=== PATIENT | male | born 1990 | race Caucasian/White ===

== ENCOUNTER → 2020-08-27 16:32 | Outpatient (BNVA) | payer MEDICARE, MEDICAID, SELFPAY | PROVIDERS: PCP Family Medicine; Visit Provider Anesthesiology | DX: L73.2 Hidradenitis suppurativa (principal); Z79.891 Long term (current) use of opiate analgesic | CPT/HCPCS: 99213 ==

== ENCOUNTER → 2020-10-01 15:02 | Outpatient (BNVA) | payer MEDICARE, MEDICAID, SELFPAY | PROVIDERS: PCP Family Medicine; Referring Provider Family Medicine; Visit Provider Anesthesiology | DX: L73.2 Hidradenitis suppurativa (principal); Z79.891 Long term (current) use of opiate analgesic | CPT/HCPCS: 99212 ==

== ENCOUNTER → 2020-10-29 15:10 | Outpatient (BNVA) | payer MEDICARE, MEDICAID, SELFPAY | PROVIDERS: PCP Family Medicine; Visit Provider Anesthesiology | DX: L73.2 Hidradenitis suppurativa (principal); Z79.891 Long term (current) use of opiate analgesic | CPT/HCPCS: 99212 ==

== ENCOUNTER → 2020-11-25 15:32 | Outpatient (BNVA) | payer MEDICARE, MEDICAID, SELFPAY | PROVIDERS: PCP Family Medicine; Visit Provider Anesthesiology | DX: L73.2 Hidradenitis suppurativa (principal); Z79.891 Long term (current) use of opiate analgesic | CPT/HCPCS: 99212 ==

== ENCOUNTER → 2020-12-30 15:01 | Outpatient (BNVA) | payer MEDICARE, MEDICAID, SELFPAY | PROVIDERS: PCP Family Medicine; Visit Provider Anesthesiology | DX: L73.2 Hidradenitis suppurativa (principal); Z79.891 Long term (current) use of opiate analgesic | CPT/HCPCS: 99212 ==

== ENCOUNTER → 2021-01-27 14:29 | Outpatient (BNVA) | payer MEDICARE, MEDICAID, SELFPAY | PROVIDERS: Visit Provider Anesthesiology | DX: L73.2 Hidradenitis suppurativa (principal); Z79.891 Long term (current) use of opiate analgesic | CPT/HCPCS: 99212 ==

== ENCOUNTER → 2021-02-24 15:51 | Outpatient (BNVA) | payer MEDICARE, MEDICAID, SELFPAY | PROVIDERS: Visit Provider Anesthesiology | DX: L73.2 Hidradenitis suppurativa (principal); Z79.891 Long term (current) use of opiate analgesic | CPT/HCPCS: 99212 ==

== ENCOUNTER → 2021-03-22 15:45 | Outpatient (BNVA) | payer MEDICARE, MEDICAID, SELFPAY | PROVIDERS: PCP Family Medicine; Visit Provider Anesthesiology | DX: L73.2 Hidradenitis suppurativa (principal); Z79.891 Long term (current) use of opiate analgesic | CPT/HCPCS: 99212 ==

== ENCOUNTER → 2021-04-26 13:21 | Outpatient (BNVA) | payer MEDICARE, MEDICAID, SELFPAY | PROVIDERS: PCP Family Medicine; Visit Provider Anesthesiology | DX: L73.2 Hidradenitis suppurativa (principal); Z79.891 Long term (current) use of opiate analgesic | CPT/HCPCS: 99212 ==

== ENCOUNTER → 2021-05-24 13:53 | Outpatient (BNVA) | payer MEDICARE, MEDICAID, SELFPAY | PROVIDERS: PCP Family Medicine; Visit Provider Anesthesiology | DX: L73.2 Hidradenitis suppurativa (principal); Z79.891 Long term (current) use of opiate analgesic | CPT/HCPCS: Q3014 ==

== ENCOUNTER → 2021-07-01 09:48 | Outpatient (BNVA) | payer MEDICARE, MEDICAID, SELFPAY | PROVIDERS: PCP Family Medicine; Visit Provider Anesthesiology | DX: R10.31 Right lower quadrant pain (principal); L73.2 Hidradenitis suppurativa; Z79.891 Long term (current) use of opiate analgesic | CPT/HCPCS: 99212 ==

== ENCOUNTER → 2021-07-28 14:31 | Outpatient (BNVA) | payer MEDICARE, MEDICAID, SELFPAY | PROVIDERS: PCP Family Medicine; Visit Provider Anesthesiology | DX: Z51.81 Encounter for therapeutic drug level monitoring (principal); L73.2 Hidradenitis suppurativa; Z79.891 Long term (current) use of opiate analgesic | CPT/HCPCS: 99212 ==

== ENCOUNTER → 2021-08-25 14:29 | Outpatient (BNVA) | payer MEDICARE, MEDICAID, SELFPAY | PROVIDERS: PCP Family Medicine; Visit Provider Anesthesiology | DX: Z51.81 Encounter for therapeutic drug level monitoring (principal); L73.2 Hidradenitis suppurativa; Z79.891 Long term (current) use of opiate analgesic | CPT/HCPCS: 99212 ==

== ENCOUNTER 2021-09-22 10:20 | Emergency (ER) | payer MEDICARE, MEDICAID, SELFPAY ==
--- NOTE | 2021-09-22 | ECG_ITS ---
Test Reason : chest pain Blood Pressure : / mmHG Vent. Rate : 081 BPM Atrial Rate : 081 BPM P-R Int : 176 ms QRS Dur : 074 ms QT Int : 330 ms P-R-T Axes : 053 050 037 degrees QTc Int : 383 ms Normal sinus rhythm Normal ECG When compared with ECG of 04-MAR-2019 21:03, No significant change was found Referred By: Generic ED Physician Electronically Signed By:DONTAE LUNDBERG MD
--- NOTE | ~2021-09-22 | CT_ITS ---
EXAMINATION: CT ANGIOGRAM OF THE CHEST WITH CONTRAST (CT PULMONARY ANGIOGRAM FOR PE) CLINICAL INFORMATION: Chest pain. Evaluate for pulmonary embolism. COMPARISON: CXR from 09/22/2021. TECHNIQUE: Prior to contrast administration, noncontrast localization images were obtained. Subsequently, multidetector volumetric imaging was performed from the thoracic inlet to below the diaphragms following the administration of 60 mL Omnipaque 350 intravenous contrast. No contrast reaction reported. Sagittal, coronal, and MIP oblique sagittal reformatted images were obtained on the CT workstation, uploaded to PACS, and reviewed. This CT examination was performed using dose optimization techniques as appropriate, variously including the following: *Automated exposure control *Adjustment of mA and/or kV according to patient size (this includes techniques or standardized protocols for targeted exams where dose is matched to indication/reason for exam; i.e. extremities or head) *Use of iterative reconstruction technique DLP: Total exam dose-length product 338 mGy-cm FINDINGS: LUNGS AND PLEURA: Trachea and central airways are widely patent and normal in caliber. Lungs are well expanded and clear. Mild paraseptal emphysema at the lung apices. No pulmonary edema. No interstitial disease, consolidation or pleural effusion. No pneumothorax. QUALITY OF STUDY/CONTRAST BOLUS: Satisfactory. CARDIOVASCULAR: Pulmonary arteries are normal in size. No embolic filling defects in the main, lobar or segmental vessels. The heart size is normal. No inward bowing of the interventricular septum. No pericardial effusion. Thoracic aorta is normal; no aneurysm or dissection. MEDIASTINUM/LOWER NECK: The esophagus and visualized portion of the thyroid gland are normal. No mediastinal mass. No pneumomediastinum. LYMPHATICS: No pathologic sized axillary, hilar or mediastinal lymph nodes. UPPER ABDOMEN: There is reflux of contrast into the IVC and hepatic veins. This is a finding that can be seen normally at high contrast injection rates. The peak IV flow rate on this scan was 5 mL/sec. However, reflux of contrast can also be a manifestation of elevated right-sided cardiac pressures. Adrenal glands are normal. OSSEOUS STRUCTURES: Mild dextrocurvature of the upper thoracic spine and mild levocurvature of the lower thoracic spine. No suspicious bone lesions. CT/CT angio chest PE protocol IMPRESSION: * No evidence of pulmonary embolism. * Mild paraseptal emphysema at the lung apices. No pneumothorax. * The finding of contrast reflux into the IVC is probably from the high intravenous injection rate.
--- NOTE | ~2021-09-22 | XR_ITS ---
EXAMINATION: XR CHEST CLINICAL INFORMATION: Chest pain COMPARISON: Radiographs of chest/ribs from 04/16/2019 TECHNIQUE: 2 views of the chest were obtained. FINDINGS: Lungs are well-inflated and clear. Trachea is midline in position. No interstitial disease, consolidation or mass. No pulmonary edema, pleural effusion or pneumothorax. Cardiac silhouette and pulmonary vessels are normal in size. The mediastinum and kerry have normal contour. The visualized bones, and upper abdomen, are unremarkable. XR/XR chest 2V IMPRESSION: No acute cardiopulmonary abnormality.
[2021-09-22 10:26] VITALS: BP 113/92; PULSE 84; RESP 18; TEMP 36.4; O2SAT 100; BMI 26.6
--- NOTE | 2021-09-22 10:54 | ED_ITS ---
HPI - Chest Pain General Chief Complaint: Chest Pain Stated Complaint: chest pain Time Seen by Provider: 09/22/21 10:54 Source: patient Mode of arrival: ambulatory Limitations: no limitations History of Present Illness HPI narrative: pleuritic lety pain since this am complaint: chest pain Onset (ago): hour(s) (6) Timing of current episode: constant Prior episodes: No Onset: during rest Pain location: substernal Pain radiation: none Severity: moderate Quality: sharp Relieving factors: nothing Exacerbating factors: inspiration Risk Factors Coronary artery disease risk factors: none Related Data Previous Rx's Medication Instructions Recorded oxycodone 5 mg tablet 5 mg PO QID PRN 30 Days #120 tab 09/17/21 Allergies Allergy/AdvReac Type Severity Reaction Status Date / Time cephalexin Allergy Unknown Unknown Verified 08/25/21 14:54 penicillin G Allergy Unknown Unknown Verified 08/25/21 14:54 Doxycycline Hyclate Allergy Unknown vomiting Uncoded 06/11/20 00:00 Review of Systems Review of Systems: Yes all other systems are reviewed and are negative Constitutional: Constitutional: Reports no additional constitutional complaints ENT: Reports system reviewed and no additional complaints, except as documented Cardiovascular: Cardiovascular: Denies irregular heart rhythm, Denies leg edema, Denies lightheadedness and Denies dyspnea Respiratory: Respiratory: Denies dyspnea PMFSH Past Medical History Attestation statement: The following information was validated with the patient. 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 Social History Social History Advance Directives: No Advance Directives Information Provided: No Physical Exam Vital Signs: Vital Signs: Last Vital Signs Temp 97.6 F 09/22/21 10:26 Pulse 84 09/22/21 10:26 Resp 18 09/22/21 10:26 BP 113/92 H 09/22/21 10:26 Pulse Ox 100 09/22/21 10:26 Body Mass Index 26.6 Const: General: cooperative and healthy appearing Orientation/consciousness: oriented to person, oriented to place, oriented to time and patient oriented x3 HENMT: Head: Yes normal to inspection Face and sinus: Yes normal facial exam Mouth: Normal oral and palatal mucosa present Teeth and gingiva: dentition normal Neck: Neck: Yes normal visual inspection Thyroid: Thyroid normal Chest: Chest palpation & inspection: normal inspection of the chest Resp: Effort & Inspection: normal respiratory effort Cardio: Jugular venous distension: no JVD Rate: regular rate Rhythm: regular rhythm GI: Inspection: Yes normal to inspection Palpation (GI): Soft to palpation Auscultation: normal bowel sounds Neuro: General: oriented to person, oriented to place, oriented to time and p atient oriented x3 Course Reevaluation(s) Reevaluation #1: Patient is feeling better his workup is negative including a CT angiogram of the chest EKG troponin patient can be safely discharged home Procedures EJ/Peripheral Line Arm L: Time Out Performed: Yes Size (gauge): 20 Patient Tolerated Procedure: well Additional Comments: Under US cannulated left brachial vein with 20 teresa catheter MDM - Chest Pain Lab Data Result diagrams: 09/22/21 12:05 09/22/21 12:05 Labs: Lab Results 09/22/21 09/22/21 09/22/21 Range/Units 12:05 12:05 12:05 WBC 14.9 H (4.8-10.8) X10*3/uL RBC 4.25 L (4.60-5.80) X10*6/uL Hgb 13.5 L (14.0-18.0) g/dl Hct 42.6 (42.0-52.0) % MCV 100.2 H (80.0-98.0) fL MCH 31.8 (27.0-33.0) pg MCHC 31.7 (31.0-36.0) g/dl RDW 13.3 (11.0-16.0) % Plt Count 414 H (160-400) X10*3/uL MPV 10.6 (9.4-12.4) fL Immature Gran % (Auto) 0.6 H (0.0-0.4) % Neut % (Auto) 71.6 (45-73) % Lymph % (Auto) 18.9 L (20-40) % [place] % (Auto) 6.2 (2-11) % Eos % (Auto) 2.2 (0-4) % Baso % (Auto) 0.5 (0-2) % Lymph # (Auto) 2.8 (1.2-4.9) X10*3/uL [place] # (Auto) 0.9 (0.1-1.2) X10*3/uL Eos # (Auto) 0.3 (0.0-0.4) X10*3/uL Baso # (Auto) 0.1 (0.0-0.2) X10*3/uL Abs Immat Gran (auto) 0.09 H (0.00-0.03) X10*3/uL Absolute Neuts (auto) 10.6 H (2.0-8.3) x10*3/uL Absolute Nucleated RBC 0.000 (0.0-0.012) X10*3/uL Nucleated RBC % (auto) 0.0 (0.0-0.2) /100WBC D-Dimer 317 NG/ML Sodium 139 (135-145) mmol/L Potassium 4.3 (3.3-5.1) mmol/L Chloride 103 (96-108) mmol/L Carbon Dioxide 29 (22-29) mmol/L Anion Gap 11 L (12-20) BUN 7 L (9-16) mg/dL Creatinine 0.67 (0.5-1.4) mg/dL Estim Creat Clear Calc 150.7 Estimated GFR > 60 Random Glucose 93 (60-115) mg/dL Calcium 9.1 (8.4-10.2) mg/dL Total Bilirubin 0.3 (0.0-1.0) mg/dL AST 15 (5-37) U/L ALT 14 (0-40) U/L Alkaline Phosphatase 85 (39-117) U/L Troponin I High Sens (<3.5-35.0) ng/L Total Protein 8.3 H (6.5-8.0) g/dL Albumin 3.7 (3.5-5.0) g/dL 09/22/21 Range/Units 12:05 WBC (4.8-10.8) X10*3/uL RBC (4.60-5.80) X10*6/uL Hgb (14.0-18.0) g/dl Hct (42.0-52.0) % MCV (80.0-98.0) fL MCH (27.0-33.0) pg MCHC (31.0-36.0) g/dl RDW (11.0-16.0) % Plt Count (160-400) X10*3/uL MPV (9.4-12.4) fL Immature Gran % (Auto) (0.0-0.4) % Neut % (Auto) (45-73) % Lymph % (Auto) (20-40) % [place] % (Auto) (2-11) % Eos % (Auto) (0-4) % Baso % (Auto) (0-2) % Lymph # (Auto) (1.2-4.9) X10*3/uL [place] # (Auto) (0.1-1.2) X10*3/uL Eos # (Auto) (0.0-0.4) X10*3/uL Baso # (Auto) (0.0-0.2) X10*3/uL Abs Immat Gran (auto) (0.00-0.03) X10*3/uL Absolute Neuts (auto) (2.0-8.3) x10*3/uL Absolute Nucleated RBC (0.0-0.012) X10*3/uL Nucleated RBC % (auto) (0.0-0.2) /100WBC D-Dimer NG/ML Sodium (135-145) mmol/L Potassium (3.3-5.1) mmol/L Chloride (96-108) mmol/L Carbon Dioxide (22-29) mmol/L Anion Gap (12-20) BUN (9-16) mg/dL Creatinine (0.5-1.4) mg/dL Estim Creat Clear Calc Estimated GFR Random Glucose (60-115) mg/dL Calcium (8.4-10.2) mg/dL Total Bilirubin (0.0-1.0) mg/dL AST (5-37) U/L ALT (0-40) U/L Alkaline Phosphatase (39-117) U/L Troponin I High Sens < 3.5 (<3.5-35.0) ng/L Total Protein (6.5-8.0) g/dL Albumin (3.5-5.0) g/dL Imaging Data CT scan - chest: Radiologist's impression: TECHNIQUE: Prior to contrast administration, noncontrast localization images were obtained. Subsequently, multidetector volumetric imaging was performed from the thoracic inlet to below the diaphragms following the administration of 60 mL Omnipaque 350 intravenous contrast. No contrast reaction reported. Sagittal, coronal, and MIP oblique sagittal reformatted images were obtained on the CT workstation, uploaded to PACS, and reviewed.? This CT examination was performed using dose optimization techniques as appropriate, variously including the following: *Automated exposure control *Adjustment of mA and/or kV according to patient size (this includes techniques or standardized protocols for targeted exams where dose is matched to indication/reason for exam; i.e. extremities or head) *Use of iterative reconstruction technique DLP: Total exam dose-length product 338 mGy-cm FINDINGS: LUNGS AND PLEURA: Trachea and central airways are widely patent and normal in caliber. Lungs are well expanded and clear. Mild paraseptal emphysema at the lung apices. No pulmonary edema. No interstitial disease, consolidation or pleural effusion. No pneumothorax. QUALITY OF STUDY/CONTRAST BOLUS: Satisfactory. ECG Data ECG #1: Prior ECG tracings: available for review Pacemaker model: NSR 81 no ischemic changes Discharge Plan Discharge Clinical Impression: Chest pain Patient Disposition: Home, Self-Care Instructions: Chest Wall Pain (ED) Prescriptions: No Action oxycodone 5 mg tablet 5 mg PO QID PRN (Reason: pain) 30 Days Qty: 120 RF: 0 Referrals: Michael Chery MD [Primary Care Provider] - 2 days
[2021-09-22] MEDS: Ibuprofen 800 MG TABLET PO (11:59)
[2021-09-22 12:10] LABS: MANUAL DIFF FLAG NO
[2021-09-22 12:13] LABS: Basophils Absolute Auto 0.1 X10*3/uL (0.0-0.2); Basophils Percent Auto 0.5 % (0-2); Eosinophils Absolute Auto 0.3 X10*3/uL (0.0-0.4); Eosinophils Percent Auto 2.2 % (0-4); Hematocrit 42.6 % (42.0-52.0); Hemoglobin 13.5 g/dl (14.0-18.0); Imm Gran Abs Auto 0.09 X10*3/uL (0.00-0.03); Imm Gran Pct Auto 0.6 % (0.0-0.4); Lymphocytes Absolute Auto 2.8 X10*3/uL (1.2-4.9); Lymphocytes Percent Auto 18.9 % (20-40); Mean Corpuscular HGB Conc 31.7 g/dl (31.0-36.0); Mean Corpuscular Hemoglobin 31.8 pg (27.0-33.0); Mean Corpuscular Volume 100.2 fL (80.0-98.0); Mean Platelet Volume 10.6 fL (9.4-12.4); Monocytes Absolute Auto 0.9 X10*3/uL (0.1-1.2); Monocytes Percent Auto 6.2 % (2-11); Neutrophils Absolute Auto 10.6 x10*3/uL (2.0-8.3); Neutrophils Percent Auto 71.6 % (45-73); Platelet Count 414 X10*3/uL (160-400); Red Blood Count 4.25 X10*6/uL (4.60-5.80); Red Cell Distribution Width 13.3 % (11.0-16.0); White Blood Count 14.9 X10*3/uL (4.8-10.8)
[2021-09-22 12:20] LABS: D Dimer 317 NG/ML
[2021-09-22 12:30] LABS: Troponin-I High Sensitivity < 3.5 ng/L (<3.5-35.0)
[2021-09-22 12:34] LABS: Alanine Aminotransferase 14 U/L (0-40); Albumin Level 3.7 g/dL (3.5-5.0); Alkaline Phosphatase 85 U/L (39-117); Anion Gap 11 (12-20); Aspartate Amino Transferase 15 U/L (5-37); Bilirubin Total 0.3 mg/dL (0.0-1.0); Blood Urea Nitrogen 7 mg/dL (9-16); Calcium 9.1 mg/dL (8.4-10.2); Carbon Dioxide 29 mmol/L (22-29); Chloride 103 mmol/L (96-108); Creatinine Clr Calc Pharmacy 150.7; Estimated Glomerular Filt Rate > 60; Glucose Random 93 mg/dL (60-115); Potassium 4.3 mmol/L (3.3-5.1); Sodium 139 mmol/L (135-145); Total Protein 8.3 g/dL (6.5-8.0)
[2021-09-22] MEDS: iohexoL 350 MG/ML 100 ML INFUS..BTL 65 ML IV (14:16)
== END 2021-09-22 15:04 | disposition home or self-care (01) ==
PROVIDERS: Emergency Provider Emergency Medicine; PCP Family Medicine
DX: R07.9 Chest pain, unspecified (principal); Z79.891 Long term (current) use of opiate analgesic
CPT/HCPCS: 36415; 71046; 71275; 80053; 84484; 85025; 85379; 93005; 99211; 99284; Q9967

== ENCOUNTER → 2021-10-25 14:29 | Outpatient (BNVA) | payer MEDICARE, MEDICAID, SELFPAY | PROVIDERS: PCP Family Medicine; Visit Provider Anesthesiology | DX: Z51.81 Encounter for therapeutic drug level monitoring (principal); L73.2 Hidradenitis suppurativa; Z79.891 Long term (current) use of opiate analgesic | CPT/HCPCS: 99212 ==

== ENCOUNTER → 2021-11-22 14:15 | Outpatient (BNVA) | payer MEDICARE, MEDICAID, SELFPAY | PROVIDERS: PCP Family Medicine; Visit Provider Anesthesiology | DX: Z51.81 Encounter for therapeutic drug level monitoring (principal); L73.2 Hidradenitis suppurativa; Z79.891 Long term (current) use of opiate analgesic | CPT/HCPCS: 99212 ==

== ENCOUNTER → 2021-12-27 14:00 | Outpatient (BNVA) | payer MEDICARE, MEDICAID, SELFPAY | PROVIDERS: PCP Family Medicine; Visit Provider Anesthesiology | DX: Z51.81 Encounter for therapeutic drug level monitoring (principal); Z79.891 Long term (current) use of opiate analgesic; L73.2 Hidradenitis suppurativa; F12.90 Cannabis use, unspecified, uncomplicated | CPT/HCPCS: 99212 ==

== ENCOUNTER → 2022-01-24 13:25 | Outpatient (BNVA) | payer MEDICARE, MEDICAID, SELFPAY | PROVIDERS: PCP Family Medicine; Visit Provider Anesthesiology | DX: Z13.89 Encounter for screening for other disorder (principal) ==

== ENCOUNTER → 2022-02-21 14:52 | Outpatient (BNVA) | payer MEDICARE, MEDICAID, SELFPAY | PROVIDERS: PCP Family Medicine; Visit Provider Anesthesiology | DX: L73.2 Hidradenitis suppurativa (principal); Z79.891 Long term (current) use of opiate analgesic | CPT/HCPCS: 99212 ==

== ENCOUNTER → 2022-03-21 15:00 | Outpatient (BNVA) | payer MEDICARE, MEDICAID, SELFPAY | PROVIDERS: PCP Family Medicine; Visit Provider Anesthesiology | DX: Z51.81 Encounter for therapeutic drug level monitoring (principal); F11.20 Opioid dependence, uncomplicated | CPT/HCPCS: 99211 ==

== ENCOUNTER → 2022-04-25 15:02 | Outpatient (BNVA) | payer MEDICARE, MEDICAID, SELFPAY | PROVIDERS: PCP Family Medicine; Visit Provider Anesthesiology | DX: L73.2 Hidradenitis suppurativa (principal); Z79.891 Long term (current) use of opiate analgesic | CPT/HCPCS: 99212 ==

== ENCOUNTER → 2022-05-23 14:54 | Outpatient (BNVA) | payer MEDICARE, MEDICAID, SELFPAY | PROVIDERS: PCP Family Medicine; Visit Provider Anesthesiology | DX: L73.2 Hidradenitis suppurativa (principal); Z79.891 Long term (current) use of opiate analgesic | CPT/HCPCS: 99212 ==

== ENCOUNTER 2022-06-17 19:58 | Emergency (ER) | payer MEDICARE, MEDICAID, SELFPAY ==
[2022-06-17 20:39] VITALS: BP 121/76; PULSE 62; RESP 18; TEMP 36.9; O2SAT 99; BMI 25.8
== END 2022-06-17 22:42 | disposition left against medical advice (07) ==
PROVIDERS: Emergency Provider Emergency Medicine; PCP Family Medicine
DX: R10.9 Unspecified abdominal pain (principal); R11.10 Vomiting, unspecified
CPT/HCPCS: 99281

== ENCOUNTER → 2022-06-22 15:15 | Outpatient (BNVA) | payer MEDICARE, MEDICAID, SELFPAY | PROVIDERS: PCP Family Medicine; Visit Provider Anesthesiology | DX: L73.2 Hidradenitis suppurativa (principal); Z79.891 Long term (current) use of opiate analgesic | CPT/HCPCS: 99212 ==

== ENCOUNTER → 2022-07-20 15:01 | Outpatient (BNVA) | payer MEDICARE, MEDICAID, SELFPAY | PROVIDERS: PCP Family Medicine; Visit Provider Anesthesiology | DX: Z51.81 Encounter for therapeutic drug level monitoring (principal); F11.20 Opioid dependence, uncomplicated | CPT/HCPCS: 99211 ==

== ENCOUNTER → 2022-09-21 16:17 | Outpatient (BNVA) | payer MEDICARE, MEDICAID, SELFPAY | PROVIDERS: PCP Hospitalist; Visit Provider Anesthesiology | DX: Z51.81 Encounter for therapeutic drug level monitoring (principal); F11.20 Opioid dependence, uncomplicated | CPT/HCPCS: 99211 ==

== ENCOUNTER 2022-10-19 16:58 | Outpatient (REF) | payer MEDICARE, MEDICAID, SELFPAY ==
[2022-10-19 17:54] LABS: Influenza A PCR NEGATIVE (Negative); Influenza B PCR NEGATIVE (Negative); Resp Syncy Virus RNA Qual PCR NEGATIVE (Negative); SARS COV2 PCR INHOUSE NEGATIVE (Negative)
== END 2022-10-19 16:59 | disposition home or self-care (01) ==
LOC: HO.LNP 16:58
PROVIDERS: Visit Provider Nurse Practitioner Family
DX: R09.89 Other specified symptoms and signs involving the circulatory and respiratory systems (principal); Z20.822 Contact with and (suspected) exposure to COVID-19
CPT/HCPCS: 0241U

== ENCOUNTER → 2022-10-24 16:21 | Outpatient (BNVA) | payer MEDICARE, MEDICAID, SELFPAY | PROVIDERS: PCP Hospitalist; Visit Provider Anesthesiology | DX: L73.2 Hidradenitis suppurativa (principal); Z79.891 Long term (current) use of opiate analgesic | CPT/HCPCS: 99212 ==

== ENCOUNTER → 2022-11-22 14:56 | Outpatient (BNVA) | payer MEDICARE, MEDICAID, SELFPAY | PROVIDERS: PCP Hospitalist; Visit Provider Anesthesiology | DX: Z79.891 Long term (current) use of opiate analgesic (principal) | CPT/HCPCS: 99211 ==

== ENCOUNTER → 2022-12-26 14:55 | Outpatient (BNVA) | payer MEDICARE, MEDICAID, SELFPAY | PROVIDERS: PCP Hospitalist; Visit Provider Anesthesiology | DX: L73.2 Hidradenitis suppurativa (principal); Z79.891 Long term (current) use of opiate analgesic | CPT/HCPCS: 99212 ==

== ENCOUNTER → 2023-01-23 15:34 | Outpatient (BNVA) | payer MEDICARE, MEDICAID, SELFPAY | PROVIDERS: PCP Hospitalist; Visit Provider Anesthesiology | DX: Z51.81 Encounter for therapeutic drug level monitoring (principal); L73.2 Hidradenitis suppurativa; Z79.891 Long term (current) use of opiate analgesic | CPT/HCPCS: 99212 ==

== ENCOUNTER → 2023-02-20 15:25 | Outpatient (BNVA) | payer MEDICARE, MEDICAID, SELFPAY | PROVIDERS: PCP Hospitalist; Visit Provider Anesthesiology | DX: L73.2 Hidradenitis suppurativa (principal); Z79.891 Long term (current) use of opiate analgesic | CPT/HCPCS: 99212 ==

== ENCOUNTER → 2023-03-20 15:07 | Outpatient (BNVA) | payer MEDICARE, MEDICAID, SELFPAY | PROVIDERS: PCP Hospitalist; Visit Provider Nurse Practitioner Family | DX: L73.2 Hidradenitis suppurativa (principal); Z79.891 Long term (current) use of opiate analgesic | CPT/HCPCS: 99212 ==

== ENCOUNTER → 2023-04-19 15:44 | Outpatient (BNVA) | payer MEDICARE, MEDICAID, SELFPAY | PROVIDERS: PCP Hospitalist; Visit Provider Anesthesiology | DX: L73.2 Hidradenitis suppurativa (principal); Z79.891 Long term (current) use of opiate analgesic | CPT/HCPCS: 99212 ==

== ENCOUNTER 2023-05-24 15:32 | Outpatient (AMB) | payer MEDICAID, SELFPAY ==
--- NOTE | 2023-05-24 15:34 | A.OFFVIS_ITS ---
Intake Vital Signs 05/24/23 15:45 Height 5 ft 9 in Weight 180 lb BMI 26.6 BP 102/60 Blood Pressure Location Lt brachial Position Sitting Respiration 16 Pulse 73 Pulse Source Pulse Oximeter Pulse Oximetry (%) 98 Oxygen Delivery Method Room Air Intake Visit Reasons: Pill count Intake Note: Patient comes in for pill count to Oxycodone 5 mg tablets . He presented with 80 tablets and should have 76 tablets. Which he took last at 12 pm. Patient reports pain level today of 7/10. Allergies cephalexin Allergy (Unknown, Verified 05/24/23 15:45) Unknown penicillin G Allergy (Unknown, Verified 05/24/23 15:45) Unknown Doxycycline Hyclate Allergy (Unknown, Uncoded 04/19/23 15:50) vomiting HPI HPI Comments History of Present Illness Details Patient is a pleasant 32 years old male presents today for pill count. Patient is supposed to have # 76 pills, in his possession has # 80 pills. This demonstrates a responsible attitude in regards to the medication regimen. Patient continues to report reasonable pain relief on his regimen of oxycodone 5 mg QID prn with no noted side effects. He reports today pain level 7/10. He reports pain medication helps his pain. He went to [place] for another surgical evaluation and he was offered intravenous antibiotic treatment for 1 week a and exploration surgery of hidradenitis in his bilateral groins while and on antibiotic therapy without closure of the wounds and healing of the wounds with secondary tension. Potentially this will result in healing of his condition. However it also will result in extensive groin scarring. Denies any constipation, nausea, sedation, dizziness, or urinary retention. Patient reports pain medication allows him to be less symptomatic and more functional. He reports that he continues Remicade infusions. PRIOR Mr. Leon is very pleasant 32 years old gentleman who is in my office on opioid medications for treatment of the pain related to hidradenitis suppurativa. He is here for pill count and medication refill. He presented with receipts from official cannabis dispensary demonstrating that he is not taking street cannabis resection of the skin with a replacement of the skin graft surgery is considered in [place]. With there is also discussion of replacement of his Enbrel with Remicade infusions or doubling the dose of Enbrel if his insurance company will allow it. I will renew his medications he is due on 05/14/2023 [facility] Medical History Hidradenitis suppurativa residential (current) use of opiate analgesic Review of Systems Const All systems reviewed & are unremarkable except as noted in HPI and below Physical Exam Vital Signs: Last Vital Signs Pulse 73 05/24/23 15:45 Resp 16 05/24/23 15:45 BP 102/60 05/24/23 15:45 Pulse Ox 98 05/24/23 15:45 Oxygen Delivery Method Room Air 05/24/23 15:45 BMI result Body Mass Index 26.6 Eyes General: appearance normal, both eyes and all related structures EOM: EOMs intact bilaterally Neck Neck: Yes full ROM Chest Chest palpation & inspection: normal inspection of the chest Resp Effort & Inspection: normal respiratory effort, able to speak in complete sentences, normal respiratory pattern, no audible wheezes and no cough Cardio Jugular venous distension: no JVD GI Inspection: Yes normal to inspection Psych Appearance: grossly normal and well kempt Mental Status: mental status grossly normal Affect: normal affect Assessment & Plan Assessment & Plan (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 There is no evidence of misuse, abuse or diversion at this time[facility] for [facility]one 5 mg QID prn with advanced date of 06/13/2023 Patient is aware of monitoring for side effects. All questions were answered and the patient is in agreement with the plan. Will follow up in 4 weeks for a pill count or sooner if needed. If he will go to [place] for his procedure he will be for long period of time under inpatient treatment. Therefore he will not be able to attend his regular pill counts. Please do not hold him accountable for no-show for the pill counts if reputable records of the [facility] are presented. Medications: Refilled oxycodone Partial Fill upon patient request. 5 mg PO QID PRN 120 tabs 0RF pain 30 days L73.2 - Hidradenitis suppurativa, Z79.891 - residential (current) use of opiate analgesic Coding Level of Care Code Est Pt Level 3 (92106) Diagnoses residential (current) use of opiate analgesic Z79.891 Hidradenitis suppurativa L73.2
[2023-05-24 15:45] VITALS: BP 102/60; PULSE 73; RESP 16; O2SAT 98; BMI 26.6
== END 2023-05-24 16:06 | disposition home or self-care (01) ==
PROVIDERS: PCP Hospitalist; Visit Provider Anesthesiology
DX: L73.2 Hidradenitis suppurativa (principal); Z79.891 Long term (current) use of opiate analgesic
CPT/HCPCS: 99213

== ENCOUNTER → 2023-05-24 15:32 | Outpatient (BNVA) | payer MEDICARE, MEDICAID, SELFPAY | PROVIDERS: PCP Hospitalist; Visit Provider Anesthesiology | DX: L73.2 Hidradenitis suppurativa (principal); Z79.891 Long term (current) use of opiate analgesic | CPT/HCPCS: 99212 ==

== ENCOUNTER → 2023-06-21 15:00 | Outpatient (BNVA) | payer MEDICARE, MEDICAID, SELFPAY | PROVIDERS: PCP Hospitalist; Visit Provider Anesthesiology | DX: Z51.81 Encounter for therapeutic drug level monitoring (principal); F11.20 Opioid dependence, uncomplicated | CPT/HCPCS: 99211 ==

== ENCOUNTER 2023-07-19 15:25 | Outpatient (AMB) | payer MEDICARE, MEDICAID, SELFPAY ==
[2023-07-19 15:56] VITALS: BP 104/60; PULSE 68; RESP 16; O2SAT 97; BMI 26.9
--- NOTE | 2023-07-19 15:56 | A.OFFVIS_ITS ---
Intake Vital Signs 07/19/23 15:56 Height 5 ft 9 in Weight 182 lb BMI 26.9 BP 104/60 Blood Pressure Location Lt brachial Position Sitting Respiration 16 Pulse 68 Pulse Source Pulse Oximeter Pulse Oximetry (%) 97 Oxygen Delivery Method Room Air Intake Visit Reasons: Pill count Intake Note: patient comes in for pill count. Allergies cephalexin Allergy (Unknown, Verified 07/19/23 15:58) Unknown penicillin G Allergy (Unknown, Verified 07/19/23 15:58) Unknown Doxycycline Hyclate Allergy (Unknown, Uncoded 04/19/23 15:50) vomiting HPI HPI Comments History of Present Illness Details Wily is a very pleasant 33 year old male who presents to the office for follow up chronic pain and chronic opioid therapy management. Patient is prescribed oxycodone 5 mg QID prn. Patient arrived today with the expectation of having 92 pills, he presented 94 pills which were counted in the presence of two staff members and returned to the patient in the original prescription bottle. This demonstrates responsible attitude toward patient's opioid medications. Pain is reported today as 9/10 and last dose of pain medication was taken at noon today. Pain is adequately managed on current opioid regimen. Patient states he is able to engage in activities of daily living with minimal interruption due to chronic pain. Patient denies side effects including somnolence, constipation, itching, dyspnea, rash, dizziness or weakness. Patient recently evaluated on [place] and was started on Ertapenem IV once daily via PICC line to the right arm. Patient states he is tolerating the medication well and has noticed significant improvment in his HS. States still having pain as the tissue is healing. Plan for surgical removal of area on back and posterior right leg after completion of 14 weeks abx therapy. Prior: Patient is a pleasant 32 years old male presents today for pill count. Patient is supposed to have # 76 pills, in his possession has # 80 pills. This demonstrates a responsible attitude in regards to the medication regimen. Patient continues to report reasonable pain relief on his regimen of oxycodone 5 mg QID prn with no noted side effects. He reports today pain level 7/10. He reports pain medication helps his pain. He went to [place] for another surgical evaluation and he was offered intravenous antibiotic treatment for 1 week a and exploration surgery of hidradenitis in his bilateral groins while and on antibiotic therapy without closure of the wounds and healing of the wounds with secondary tension. Potentially this will result in healing of his condition. However it also will result in extensive groin scarring. Denies any constipation, nausea, sedation, dizziness, or urinary retention. Patient reports pain medication allows him to be less symptomatic and more functional. He reports that he continues Remicade infusions. 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 Answers questions appropriately. Fully engaged in examination. HEENT: Normocephalic. Hearing intact. Cardiac: External chest normal in appearance. Respiratory: No cough, audible wheezing or stridor. Abdomen: without gross distension. MS: No obvious swelling or deformities. Able to transition from sit to stand unassisted. Ambulates with bilaterally normal heel strike and toe off Neurological: Oriented to person, place, time and situation. Thought process intact. No gait abnormalities appreciated. Psychiatric: Appropriate mood and affect. Good judgment and insight. 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 No obvious signs of diversion, abuse or misuse of the opioid medications. Will send in prescription for oxycodone 5 mg QID prn with an advanced date of 08/12/2023. Patient to follow-up in the office in 1 month, sooner if needed. All questions and concerns have been answered and patient agrees with the plan. Medications: Refilled oxycodone Partial Fill upon patient request. 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
== END 2023-07-19 16:06 | disposition home or self-care (01) ==
PROVIDERS: PCP Hospitalist; Visit Provider Anesthesiology
DX: G89.4 Chronic pain syndrome (principal); L73.2 Hidradenitis suppurativa; Z79.891 Long term (current) use of opiate analgesic
CPT/HCPCS: 99213

== ENCOUNTER → 2023-07-19 15:25 | Outpatient (BNVA) | payer MEDICARE, MEDICAID, SELFPAY | PROVIDERS: PCP Hospitalist; Visit Provider Anesthesiology | DX: L73.2 Hidradenitis suppurativa (principal); Z79.891 Long term (current) use of opiate analgesic | CPT/HCPCS: 99212 ==

== ENCOUNTER 2023-08-16 15:07 | Outpatient (AMB) | payer MEDICAID, SELFPAY ==
--- NOTE | 2023-08-16 15:12 | A.OFFVIS_ITS ---
Intake Vital Signs 08/16/23 15:17 Height 5 ft 9 in Weight 188 lb BMI 27.8 BP 96/58 L Blood Pressure Location Lt brachial Position Sitting Respiration 16 Pulse 80 Pulse Source Pulse Oximeter Pulse Oximetry (%) 96 Oxygen Delivery Method Room Air Intake Visit Reasons: Medication Count Allergies cephalexin Allergy (Unknown, Verified 08/16/23 15:36) Unknown penicillin G Allergy (Unknown, Verified 08/16/23 15:36) Unknown Doxycycline Hyclate Allergy (Unknown, Uncoded 04/19/23 15:50) vomiting HPI HPI Comments History of Present Illness Details Wily is a very pleasant 33 year old male who presents to the office for follow up chronic pain and chronic opioid therapy management. Patient is prescribed oxycodone 5 mg QID prn. Patient arrived today with the expectation of having 100 pills, he presented 106 pills which were counted in the presence of two staff members and returned to the patient in the original prescription bottle. This demonstrates responsible attitude toward patient's o pioid medications. Pain is reported today as 7.5/10 and last dose of pain medication was taken at noon today. Pain is adequately managed on current opioid regimen. Patient states he is able to engage in activities of daily living with minimal interruption due to chronic pain. Patient denies side effects including somnolence, constipation, itching, dyspnea, rash, dizziness or weakness. Patient remains on Ertapenem IV once daily via PICC line to the right arm. Patient states he is tolerating the medication well and has noticed significant improvment in his HS. Has an appt in [place] tomorrow with the surgeon to discuss surgical removal of recurrent cysts. Initial plan was 14 weeks of abx, now they are planning on 16 weeks. Receipt from Marijuana dispensary provided by patient and scanned into the chart. 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 Answers questions appropriately. Fully engaged in examination. HEENT: Normocephalic. Hearing intact. Cardiac: External chest normal in appearance. Respiratory: No cough, audible wheezing or stridor. Abdomen: without gross distension. MS: No obvious swelling or deformities. Able to transition from sit to stand unassisted. Ambulates with bilaterally normal heel strike and toe off Neurological: Oriented to person, place, time and situation. Thought process intact. No gait abnormalities appreciated. Psychiatric: Appropriate mood and affect. Good judgment and insight. Assessment & Plan Assessment & Plan (1) correction (current) use of opiate analgesic: Code(s): Z79.891 - correction (current) use of opiate analgesic (2) Hidradenitis suppurativa: Code(s): L73.2 - Hidradenitis suppurativa Plan [place] was reviewed and without concerns. No obvious signs of diversion, abuse or misuse of the opioid medications. Will send in prescription for oxycodone 5 mg QID prn with an advanced date of 09/11/2023. Patient to follow-up in the office in 1 month, sooner if needed. All questions and concerns have been answered and patient agrees with the plan. Patient will call the office to update plan if surgery is scheduled in [place] and next pill count needs to be rescheduled to accommodate surgery. Medications: Refilled oxycodone Partial Fill upon patient request. 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
[2023-08-16 15:17] VITALS: BP 96/58; PULSE 80; RESP 16; O2SAT 96; BMI 27.8
== END 2023-08-16 15:22 | disposition home or self-care (01) ==
PROVIDERS: PCP Hospitalist; Visit Provider Registered Nurse Emergency
DX: Z79.891 Long term (current) use of opiate analgesic (principal); L73.2 Hidradenitis suppurativa
CPT/HCPCS: 99213

== ENCOUNTER → 2023-08-16 15:07 | Outpatient (BNVA) | payer MEDICARE, MEDICAID, SELFPAY | PROVIDERS: PCP Hospitalist; Visit Provider Registered Nurse Emergency | DX: L73.2 Hidradenitis suppurativa (principal); Z79.891 Long term (current) use of opiate analgesic | CPT/HCPCS: 99212 ==

== ENCOUNTER 2023-09-20 14:44 | Outpatient (AMB) | payer MEDICAID, SELFPAY ==
[2023-09-20 14:54] VITALS: BP 114/72; PULSE 78; RESP 18; O2SAT 96; BMI 27.6
--- NOTE | 2023-09-20 14:54 | MHC.OFFVIS ---
Intake Vital Signs 09/20/23 14:54 Height 5 ft 9 in Weight 187 lb BMI 27.6 BP 114/72 Blood Pressure Location Lt brachial Position Sitting Respiration 18 Pulse 78 Pulse Source Pulse Oximeter Pulse Oximetry (%) 96 Oxygen Delivery Method Room Air Intake Visit Reasons: Medication Count Allergies cephalexin Allergy (Unknown, Verified 09/20/23 14:54) Unknown penicillin G Allergy (Unknown, Verified 09/20/23 14:54) Unknown Doxycycline Hyclate Allergy (Unknown, Uncoded 04/19/23 15:50) vomiting HPI HPI Comments History of Present Illness Details Wily is a very pleasant 33 year old male who presents to the office for follow up chronic pain and chronic opioid therapy management. Patient is prescribed oxycodone 5 mg QID prn. Patient arrived today with the expectation of having 80 pills, he presented 75 pills which were counted in the presence of two staff members and returned to the patient in the original prescription bottle. Patient had surgery in [place] last week and was allowed a temporary increase in his medication which would allow a discrepancy of 16 tabs. Therefore his pill count is accurate today. This demonstrates responsible attitude toward patient's opioid medications. Pain is reported today as 10/10 and last dose of pain medication was taken at noon today. Patient denies side effects including somnolence, constipation, itching, dyspnea, rash, dizziness or weakness. Receipt from Marijuana dispensary provided by patient and scanned into the chart. Patient remains on Ertapenem IV once daily via PICC line to the right arm. Patient states he is tolerating the medication well with a plan to complete 18 weeks of ABX treatment. He had surgical removal of the abscesses to the left groin last week in [place]. has been doing wound care and applying dressings as directed on discharge from the hospital. They report that the dissolvable sutures are no longer keeping the area closed. He is in severe pain and having difficulty moving, walking, sitting and using the bathroom. took pictures and sent them to the surgeon in [place], they were advised to follow up as planned. 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 Answers questions appropriately. Appears uncomfortable. HEENT: Normocephalic. Hearing intact. Cardiac: External chest normal in appearance. Respiratory: No cough, audible wheezing or stridor. Abdomen: without gross distension. Neurological: Oriented to person, place, time and situation. Thought process intact. Psychiatric: Appropriate mood and affect. Good judgment and insight. 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 No obvious signs of diversion, abuse or misuse of the opioid medications. Will send in prescription for oxycodone 5 mg QID prn with an advanced date of 10/02/2023. Patient was advised that he will be temporarily increased to 7.5mg po QID, maximum of 6 tabs in 24 hours, for the next 10 days. Dressing was removed, surgical site visualized as per pictures above. Area covered with abdominal pads, coban utilized to hold in place. Patient tolerated well. Patient will follow up as planned in [place] tomorrow. Dr Garcia was requested to bedside to visualize the wounds, he is in agreement with above careplan. All questions and concerns have been answered and patient agrees with the plan. Patient will call the office to update plan if anything changes after his follow up in [place]. He was advised to call the office if there is any difficulty filling his next prescription early; may require office verifying with pharmacy it is ok to fill early. Medications: Refilled oxycodone Partial Fill upon patient request. 5 mg PO QID 30 days PRN 120 tabs 0RF pain L73.2 - Hidradenitis suppurativa, Z79.891 - residential (current) use of opiate analgesic Coding Level of Care Code Est Pt Level 4 (78228) Diagnoses residential (current) use of opiate analgesic Z79.891 Hidradenitis suppurativa L73.2 Time Spent (min) 30 Comment
== END 2023-09-20 15:24 | disposition home or self-care (01) ==
PROVIDERS: PCP Hospitalist; Visit Provider Registered Nurse Emergency
DX: Z79.891 Long term (current) use of opiate analgesic (principal); L73.2 Hidradenitis suppurativa
CPT/HCPCS: 99214

== ENCOUNTER → 2023-09-20 14:44 | Outpatient (BNVA) | payer MEDICARE, MEDICAID, SELFPAY | PROVIDERS: PCP Hospitalist; Visit Provider Registered Nurse Emergency | DX: Z51.81 Encounter for therapeutic drug level monitoring (principal); L73.2 Hidradenitis suppurativa; Z79.891 Long term (current) use of opiate analgesic | CPT/HCPCS: 99212 ==

== ENCOUNTER 2023-10-18 13:02 | Outpatient (AMB) | payer MEDICAID, SELFPAY ==
--- NOTE | 2023-10-18 13:14 | MHC.OFFVIS ---
Intake Vital Signs 10/18/23 13:15 Height 5 ft 9 in Weight 200 lb 6 oz BMI 29.6 BP 110/60 Blood Pressure Location Lt brachial Position Sitting Respiration 16 Pulse 84 Pulse Source Pulse Oximeter Pulse Oximetry (%) 99 Oxygen Delivery Method Room Air Intake Visit Reasons: PILL COUNT/LMOVM Allergies cephalexin Allergy (Unknown, Verified 10/18/23 13:14) Unknown penicillin G Allergy (Unknown, Verified 10/18/23 13:14) Unknown Doxycycline Hyclate Allergy (Unknown, Uncoded 04/19/23 15:50) vomiting HPI HPI Comments History of Present Illness Details Wily is a very pleasant 33 year old male who presents to the office for follow up chronic pain and chronic opioid therapy management. Patient is prescribed oxycodone 5 mg QID prn. Patient arrived today with the expectation of having 80 pills, he presented 84 pills which were counted in the presence of two staff members and returned to the patient in the original prescription bottle. This demonstrates responsible attitude toward patient's opioid medications. Pain is reported today as 8/10 and last dose of pain medication was taken at noon today. Patient denies side effects including somnolence, constipation, itching, dyspnea, rash, dizziness or weakness. Receipt from Marijuana dispensary provided by patient and scanned into the chart. Completed course of IV abx, states not taking po abx cocktail . Reports some GI side effects, eating yogurt. Is not taking probiotics, was not offered by surgeons office at last visit. Reports surgical wounds are healing well, continues with dressing changes at home. Following up with surgeon's office later this month. [facility] Medical History Hidradenitis suppurativa [facility] (current) use of opiate analgesic Review of Systems Const All systems reviewed & are unremarkable except as noted in HPI and below Physical Exam Vital Signs: Last Vital Signs Pulse 84 10/18/23 13:15 Resp 16 10/18/23 13:15 BP 110/60 10/18/23 13:15 Pulse Ox 99 10/18/23 13:15 Oxygen Delivery Method Room Air 10/18/23 13:15 BMI result Body Mass Index 29.6 General: awake, alert, oriented. Answers questions appropriately. Fully engaged in examination. HEENT: Normocephalic. Hearing intact. Cardiac: External chest normal in appearance. Respiratory: No cough, audible wheezing or stridor. Abdomen: without gross distension. MS: No obvious swelling or deformities. Able to transition from sit to stand unassisted. Ambulates with bilaterally normal heel strike and toe off Neurological: Oriented to person, place, time and situation. Thought process intact. No gait abnormalities appreciated. Psychiatric: Appropriate mood and affect. Good judgment and insight. 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 No obvious signs of diversion, abuse or misuse of the opioid medications. Will send in prescription for oxycodone 5 mg QID prn with an advanced date of 11/08/2023. 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 All questions and concerns have been answered and patient agrees with the plan. Follow up in 1 month, sooner if needed Medications: New lactobacillus combination no.4 (Probiotic) administer with a meal 3,000 mmu cells PO DAILY 60 caps 3RF Refilled oxycodone Partial Fill upon patient request. 5 mg PO QID 30 days PRN 120 tabs 0RF pain L73.2 - Hidradenitis suppurativa, Z79.891 - [facility] (current) use of opiate analgesic Discontinued oxycodone Partial Fill upon patient request. Discontinued Reason: Patient Completed Course 10 mg PO BID PRN 14 tabs 0RF pain Coding Level of Care Code Est Pt Level 4 (12200) Diagnoses [facility] (current) use of opiate analgesic Z79.891 Hidradenitis suppurativa L73.2
[2023-10-18 13:15] VITALS: BP 110/60; PULSE 84; RESP 16; O2SAT 99; BMI 29.6
== END 2023-10-18 13:19 | disposition home or self-care (01) ==
PROVIDERS: PCP Hospitalist; Visit Provider Registered Nurse Emergency
DX: Z79.891 Long term (current) use of opiate analgesic (principal); L73.2 Hidradenitis suppurativa
CPT/HCPCS: 99214

== ENCOUNTER → 2023-10-18 13:02 | Outpatient (BNVA) | payer MEDICARE, MEDICAID, SELFPAY | PROVIDERS: PCP Hospitalist; Visit Provider Registered Nurse Emergency | DX: Z51.81 Encounter for therapeutic drug level monitoring (principal); L73.2 Hidradenitis suppurativa; Z79.891 Long term (current) use of opiate analgesic | CPT/HCPCS: 99212 ==

== ENCOUNTER 2023-11-22 14:39 | Outpatient (AMB) | payer MEDICAID, SELFPAY ==
[2023-11-22 14:48] VITALS: BP 110/62; PULSE 70; RESP 18; O2SAT 98; BMI 29.5
--- NOTE | 2023-11-22 14:48 | MHC.OFFVIS ---
Intake Vital Signs 11/22/23 14:48 Height 5 ft 9 in Weight 200 lb BMI 29.5 BP 110/62 Blood Pressure Location Lt brachial Position Sitting Respiration 18 Pulse 70 Pulse Source Pulse Oximeter Pulse Oximetry (%) 98 Oxygen Delivery Method Room Air Intake Visit Reasons: Medication Count/phone # not working Allergies cephalexin Allergy (Unknown, Verified 11/22/23 14:47) Unknown penicillin G Allergy (Unknown, Verified 11/22/23 14:47) Unknown Doxycycline Hyclate Allergy (Unknown, Uncoded 04/19/23 15:50) vomiting HPI HPI Comments History of Present Illness Details Wily is a very pleasant 33 year old male who presents to the office for follow up chronic pain and chronic opioid therapy management. Patient is prescribed oxycodone 5 mg QID prn. Patient arrived today with the expectation of having 60 pills, he presented 64 pills which were counted in the presence of two staff members and returned to the patient in the original prescription bottle. This demonstrates responsible attitude toward patient's opioid medications. Pain is reported today as 7/10 and last dose of pain medication was taken at noon today. Patient denies side effects including somnolence, constipation, itching, dyspnea, rash, dizziness or weakness. Receipt from Marijuana dispensary provided by patient and scanned into the chart. Patient continues being followed in [place] for SORIANO, healing well from recent right groin surgery. Plan for back surgery next to remove more abscesses with left groin to follow. [facility] Medical History Hidradenitis suppurativa [facility] (current) use of opiate analgesic Review of Systems Const All systems reviewed & are unremarkable except as noted in HPI and below Physical Exam Vital Signs: Last Vital Signs Pulse 70 11/22/23 14:48 Resp 18 11/22/23 14:48 BP 110/62 11/22/23 14:48 Pulse Ox 98 11/22/23 14:48 Oxygen Delivery Method Room Air 11/22/23 14:48 BMI result Body Mass Index 29.5 General: awake, alert, oriented. Answers questions appropriately. Fully engaged in examination. HEENT: Normocephalic. Hearing intact. Cardiac: External chest normal in appearance. Respiratory: No cough, audible wheezing or stridor. Abdomen: without gross distension. MS: No obvious swelling or deformities. Able to transition from sit to stand unassisted. Ambulates with bilaterally normal heel strike and toe off Neurological: Oriented to person, place, time and situation. Thought process intact. No gait abnormalities appreciated. Psychiatric: Appropriate mood and affect. Good judgment and insight. 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 No obvious signs of diversion, abuse or misuse of the opioid medications. Will send in prescription for oxycodone 5 mg QID prn with an advanced date of 12/08/23. All questions and concerns have been answered and patient agrees with the plan. Follow up in 1 month, sooner if needed Medications: Refilled oxycodone Partial Fill upon patient request. 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
== END 2023-11-22 14:57 | disposition home or self-care (01) ==
PROVIDERS: PCP Hospitalist; Visit Provider Registered Nurse Emergency
DX: Z79.891 Long term (current) use of opiate analgesic (principal); L73.2 Hidradenitis suppurativa
CPT/HCPCS: 99214

== ENCOUNTER → 2023-11-22 14:39 | Outpatient (BNVA) | payer MEDICARE, MEDICAID, SELFPAY | PROVIDERS: PCP Hospitalist; Visit Provider Registered Nurse Emergency | DX: Z51.81 Encounter for therapeutic drug level monitoring (principal); F11.20 Opioid dependence, uncomplicated; L73.2 Hidradenitis suppurativa; Z79.891 Long term (current) use of opiate analgesic | CPT/HCPCS: 99212 ==

== ENCOUNTER 2023-12-20 14:05 | Outpatient (AMB) | payer MEDICAID, SELFPAY ==
[2023-12-20 14:17] VITALS: BP 115/57; PULSE 84; RESP 16; O2SAT 98; BMI 29.6
--- NOTE | 2023-12-20 14:17 | MHC.OFFVIS ---
Intake Vital Signs 12/20/23 14:17 Height 5 ft 9 in Weight 200 lb 6 oz BMI 29.6 BP 115/57 L Blood Pressure Location Lt brachial Position Sitting Respiration 16 Pulse 84 Pulse Source Pulse Oximeter Pulse Oximetry (%) 98 Oxygen Delivery Method Room Air Intake Visit Reasons: Pill count - Confirmed Allergies cephalexin Allergy (Unknown, Verified 12/20/23 14:18) Unknown penicillin G Allergy (Unknown, Verified 12/20/23 14:18) Unknown Doxycycline Hyclate Allergy (Unknown, Uncoded 04/19/23 15:50) vomiting HPI HPI Comments History of Present Illness Details Wily is a very pleasant 33 year old male who presents to the office for follow up chronic pain and chronic opioid therapy management. Patient is prescribed oxycodone 5 mg QID prn. Patient arrived today with the expectation of having 100 pills, he presented 99 pills which were counted in the presence of two staff members and returned to the patient in the original prescription bottle. This demonstrates responsible attitude toward patient's opioid medications. Pain is reported today as 6/10 and last dose of pain medication was taken at noon today. Patient denies side effects including somnolence, constipation, itching, dyspnea, rash, dizziness or weakness. Reports he fell in the parking lot, clothes are covered in mud. Reports pain in the left ankle, mild . He is able to ambulate without difficulty. He does not wish to be seen in the ER. [facility] Medical History Hidradenitis suppurativa care home (current) use of opiate analgesic Review of Systems Const All systems reviewed & are unremarkable except as noted in HPI and below Physical Exam Vital Signs: Last Vital Signs Pulse 84 12/20/23 14:17 Resp 16 12/20/23 14:17 BP 115/57 L 12/20/23 14:17 Pulse Ox 98 12/20/23 14:17 Oxygen Delivery Method Room Air 12/20/23 14:17 BMI result Body Mass Index 29.6 General: awake, alert, oriented. Answers questions appropriately. Fully engaged in examination. HEENT: Normocephalic. Hearing intact. Cardiac: External chest normal in appearance. Respiratory: No cough, audible wheezing or stridor. Abdomen: without gross distension. MS: No obvious swelling or deformities. Able to transition from sit to stand unassisted. Ambulates with bilaterally normal heel strike and toe off right ankle tender to palpation laterally. no swelling. ROM intact. Neurological: Oriented to person, place, time and situation. Thought process intact. No gait abnormalities appreciated. Psychiatric: Appropriate mood and affect. Good judgment and insight. 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 Declines treatment in the ER. Declines XR of the ankle. Rest, ice, motrin as needed. He will call the office if pain persists or worsens. [place] was reviewed and without concerns. No obvious signs of diversion, abuse or misuse of the opioid medications. Will send in prescription for oxycodone 5 mg QID prn with an advanced date of 01/15/24. All questions and concerns have been answered and patient agrees with the plan. Follow up in 1 month, sooner if needed Medications: Refilled oxycodone Partial Fill upon patient request. 5 mg PO QID 30 days PRN 120 tabs 0RF pain L73.2 - Hidradenitis suppurativa, Z79.891 - care home (current) use of opiate analgesic Coding Level of Care Code Est Pt Level 4 (17196) Diagnoses care home (current) use of opiate analgesic Z79.891 Hidradenitis suppurativa L73.2
== END 2023-12-20 14:34 | disposition home or self-care (01) ==
PROVIDERS: PCP Hospitalist; Visit Provider Registered Nurse Emergency
DX: Z79.891 Long term (current) use of opiate analgesic (principal); L73.2 Hidradenitis suppurativa
CPT/HCPCS: 99214

== ENCOUNTER → 2023-12-20 14:05 | Outpatient (BNVA) | payer MEDICARE, MEDICAID, SELFPAY | PROVIDERS: PCP Hospitalist; Visit Provider Registered Nurse Emergency | DX: Z51.81 Encounter for therapeutic drug level monitoring (principal); L73.2 Hidradenitis suppurativa; Z79.891 Long term (current) use of opiate analgesic | CPT/HCPCS: 99212 ==

== ENCOUNTER 2024-01-24 15:00 | Outpatient (AMB) | payer MEDICAID, SELFPAY ==
[2024-01-24 15:15] VITALS: BP 123/71; PULSE 86; RESP 18; O2SAT 96; BMI 29.8
--- NOTE | 2024-01-24 15:15 | MHC.OFFVIS ---
Intake Vital Signs 01/24/24 15:15 Height 5 ft 9 in Weight 201 lb 8 oz BMI 29.8 BP 123/71 Blood Pressure Location Lt brachial Position Sitting Respiration 18 Pulse 86 Pulse Source Pulse Oximeter Pulse Oximetry (%) 96 Oxygen Delivery Method Room Air Intake Visit Reasons: PILL COUNT - Confirmed Allergies cephalexin Allergy (Unknown, Verified 01/24/24 15:16) Unknown penicillin G Allergy (Unknown, Verified 01/24/24 15:16) Unknown Doxycycline Hyclate Allergy (Unknown, Uncoded 04/19/23 15:50) vomiting HPI HPI Comments History of Present Illness Details Wily is a very pleasant 33 year old male who presents to the office for follow up chronic pain and chronic opioid therapy management. Patient is prescribed oxycodone 5 mg QID prn. Patient arrived today with the expectation of having 80 pills, he presented 86 pills which were counted in the presence of two staff members and returned to the patient in the original prescription bottle. This demonstrates responsible attitude toward patient's opioid medications. Pain is reported today as 7/10 and last dose of pain medication was taken at noon today. Patient denies side effects including somnolence, constipation, itching, dyspnea, rash, dizziness or weakness. Patient recently returned from a vacation in [place]. His chronic pain did not impact his ability to travel by plane or enjoy his vacation. Has appointment next week in [place] to discuss further surgeries for his SORIANO, he will call and update the office if there is any scheduled surgeries. Continues with oral antibiotics as prescribed by the surgeon. [facility] Medical History Hidradenitis suppurativa [facility] (current) use of opiate analgesic Review of Systems Const All systems reviewed & are unremarkable except as noted in HPI and below Physical Exam Vital Signs: Last Vital Signs Pulse 86 01/24/24 15:15 Resp 18 01/24/24 15:15 BP 123/71 01/24/24 15:15 Pulse Ox 96 01/24/24 15:15 Oxygen Delivery Method Room Air 01/24/24 15:15 BMI result Body Mass Index 29.8 General: awake, alert, oriented. Answers questions appropriately. Fully engaged in examination. HEENT: Normocephalic. Hearing intact. Cardiac: External chest normal in appearance. Respiratory: No cough, audible wheezing or stridor. Abdomen: without gross distension. MS: No obvious swelling or deformities. Able to transition from sit to stand unassisted. Ambulates with bilaterally normal heel strike and toe off Neurological: Oriented to person, place, time and situation. Thought process intact. No gait abnormalities appreciated. Psychiatric: Appropriate mood and affect. Good judgment and insight. 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 No obvious signs of diversion, abuse or misuse of the opioid medications. Will send in prescription for oxycodone 5 mg QID prn with an advanced date of 02/14/24. All questions and concerns have been answered and patient agrees with the plan. Follow up in 1 month, sooner if needed Medications: Refilled oxycodone Partial Fill upon patient request. 5 mg PO QID PRN 120 tabs 0RF pain 30 days L73.2 - Hidradenitis suppurativa, Z79.891 - [facility] (current) use of opiate analgesic Coding Level of Care Code Est Pt Level 4 (24175) Diagnoses [facility] (current) use of opiate analgesic Z79.891 Hidradenitis suppurativa L73.2
== END 2024-01-24 15:24 | disposition home or self-care (01) ==
PROVIDERS: PCP Hospitalist; Visit Provider Registered Nurse Emergency
DX: Z79.891 Long term (current) use of opiate analgesic (principal); L73.2 Hidradenitis suppurativa
CPT/HCPCS: 99214

== ENCOUNTER → 2024-01-24 15:00 | Outpatient (BNVA) | payer MEDICARE, MEDICAID, SELFPAY | PROVIDERS: PCP Hospitalist; Visit Provider Registered Nurse Emergency | DX: L73.2 Hidradenitis suppurativa (principal); Z79.891 Long term (current) use of opiate analgesic | CPT/HCPCS: 99212 ==

== ENCOUNTER 2024-02-21 14:51 | Outpatient (AMB) | payer MEDICAID, SELFPAY ==
[2024-02-21 15:05] VITALS: BP 102/64; PULSE 88; RESP 18; O2SAT 97
--- NOTE | 2024-02-21 15:05 | A.OFFVIS_ITS ---
Intake Vital Signs 02/21/24 15:05 Height 5 ft 9 in Weight 203 lb BMI 30.0 BP 102/64 Blood Pressure Location Lt brachial Position Sitting Respiration 18 Pulse 88 Pulse Source Pulse Oximeter Pulse Oximetry (%) 97 Oxygen Delivery Method Room Air Intake Visit Reasons: Pill Count Allergies cephalexin Allergy (Unknown, Verified 01/24/24 15:16) Unknown penicillin G Allergy (Unknown, Verified 01/24/24 15:16) Unknown Doxycycline Hyclate Allergy (Unknown, Uncoded 04/19/23 15:50) vomiting HPI HPI Comments History of Present Illness Details Wily is a very pleasant 33 year old male who presents to the office for follow up chronic pain and chronic opioid therapy management. Patient is prescribed oxycodone 5 mg QID prn. Patient arrived today with the expectation of having 88 pills, he presented 96 pills which were counted in the presence of two staff members and returned to the patient in the original prescription bottle. This demonstrates responsible attitude toward patient's opioid medications. Pain is reported today as 5/10 and last dose of pain medication was taken at noon today. Patient denies side effects including somnolence, constipation, itching, dyspnea, rash, dizziness or weakness. Since last visit he has completed another appointment with the surgeon in [place]. Was offered surgery to address his hidradenitis suppurativa on the back, he decided to hold off on surgery until the fall. His next follow-up with the surgeon is in June for preop appointment. 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 Answers questions appropriately. Fully engaged in examination. HEENT: Normocephalic. Hearing intact. Cardiac: External chest normal in appearance. Respiratory: No cough, audible wheezing or stridor. Abdomen: without gross distension. MS: No obvious swelling or deformities. Able to transition from sit to stand unassisted. Ambulates with bilaterally normal heel strike and toe off Neurological: Oriented to person, place, time and situation. Thought process i ntact. No gait abnormalities appreciated. Psychiatric: Appropriate mood and affect. Good judgment and insight. 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 No obvious signs of diversion, abuse or misuse of the opioid medications. Will send in prescription for oxycodone 5 mg QID prn with an advanced date of 03/15/24. Follow-up with surgeon in [place] as planned, patient aware that he is required to notify the office of any changes to his opioid medications prior to filling any prescriptions from any other providers. All questions and concerns have been answered and patient agrees with the plan. Follow up in 1 month, sooner if needed Medications: Refilled oxycodone Partial Fill upon patient request. 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
== END 2024-02-21 15:10 | disposition home or self-care (01) ==
PROVIDERS: PCP Hospitalist; Visit Provider Registered Nurse Emergency
DX: Z79.891 Long term (current) use of opiate analgesic (principal); L73.2 Hidradenitis suppurativa
CPT/HCPCS: 99214

== ENCOUNTER → 2024-02-21 14:51 | Outpatient (BNVA) | payer MEDICARE, MEDICAID, SELFPAY | PROVIDERS: PCP Hospitalist; Visit Provider Registered Nurse Emergency | DX: Z51.81 Encounter for therapeutic drug level monitoring (principal); L73.2 Hidradenitis suppurativa; Z79.891 Long term (current) use of opiate analgesic | CPT/HCPCS: 99212 ==

== ENCOUNTER 2024-03-27 14:01 | Outpatient (AMB) | payer MEDICARE, SELFPAY ==
[2024-03-27 14:17] VITALS: BP 118/69; PULSE 78; RESP 18; O2SAT 96; BMI 29.5
--- NOTE | 2024-03-27 14:17 | MHC.OFFVIS ---
Vital Signs 03/27/24 14:17 Height 5 ft 9 in Weight 200 lb BMI 29.5 BP 118/69 Blood Pressure Location Lt brachial Position Sitting Respiration 18 Pulse 78 Pulse Source Pulse Oximeter Pulse Oximetry (%) 96 Oxygen Delivery Method Room Air Intake Visit Reasons: PILL COUNT Allergies cephalexin Allergy (Unknown, Verified 03/27/24 14:17) Unknown penicillin G Allergy (Unknown, Verified 03/27/24 14:17) Unknown Doxycycline Hyclate Allergy (Unknown, Uncoded 04/19/23 15:50) vomiting HPI Comments Details: Wily is a very pleasant 33 year old male who presents to the office for follow up chronic pain and chronic opioid therapy management. Patient is prescribed oxycodone 5 mg QID prn. Patient arrived today with the expectation of having 68 pills, he presented 75 pills which were counted in the presence of two staff members and returned to the patient in the original prescription bottle. This demonstrates responsible attitude toward patient's opioid medications. Pain is reported today as 8/10 and last dose of pain medication was taken at noon today. Patient denies side effects including somnolence, constipation, itching, dyspnea, rash, dizziness or weakness. 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 Answers questions appropriately. Fully engaged in examination. HEENT: Normocephalic. Hearing intact. Cardiac: External chest normal in appearance. Respiratory: No cough, audible wheezing or stridor. Abdomen: without gross distension. MS: No obvious swelling or deformities. Able to transition from sit to stand unassisted. Ambulates with bilaterally normal heel strike and toe off Neurological: Oriented to person, place, time and situation. Thought process intact. No gait abnormalities appreciated. Psychiatric: Appropriate mood and affect. Good judgment and insight. Assessment & Plan Assessment & Plan (1) senior living (current) use of opiate analgesic: Code(s): Z79.891 - senior living (current) use of opiate analgesic Category: Medical (2) Hidradenitis suppurativa: Code(s): L73.2 - Hidradenitis suppurativa Category: Medical Plan [place]pat was reviewed and without concerns. No obvious signs of diversion, abuse or misuse of the opioid medications. Will send in prescription for oxycodone 5 mg QID prn with an advanced date of 04/14/24. Follow-up with surgeon in [place] as planned, patient aware that he is required to notify the office of any changes to his opioid medications prior to filling any prescriptions from any other providers. All questions and concerns have been answered and patient agrees with the plan. Follow up in 1 month, sooner if needed Medications: Refilled oxycodone Partial Fill upon patient request. 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
== END 2024-03-27 14:25 | disposition home or self-care (01) ==
PROVIDERS: PCP Hospitalist; Visit Provider Registered Nurse Emergency
DX: L73.2 Hidradenitis suppurativa (principal); Z79.891 Long term (current) use of opiate analgesic
CPT/HCPCS: 99214

== ENCOUNTER → 2024-03-27 14:01 | Outpatient (BNVA) | payer MEDICAID, SELFPAY | PROVIDERS: PCP Hospitalist; Visit Provider Registered Nurse Emergency | DX: Z51.81 Encounter for therapeutic drug level monitoring (principal); L73.2 Hidradenitis suppurativa; Z79.891 Long term (current) use of opiate analgesic | CPT/HCPCS: 99212 ==

== ENCOUNTER 2024-04-25 14:43 | Outpatient (AMB) | payer MEDICARE, MEDICAID, SELFPAY ==
--- NOTE | 2024-04-25 14:42 | MHC.OFFVIS ---
Vital Signs 04/25/24 14:48 Height 5 ft 9 in Weight 205 lb BMI 30.3 BP 116/72 Blood Pressure Location Lt brachial Position Sitting Pulse 85 Pulse Source Pulse Oximeter Pulse Oximetry (%) 96 Oxygen Delivery Method Room Air Intake Visit Reasons: Pill Count Intake Note: Wily comes in today for a pill count to oxycodone, patient should have 72 tablets and presents with 78 tablets which he last took today 04/25/24 at 12pm. Pain today 510 Box Strapper Required: No Accompanied by: Spouse Allergies cephalexin Allergy (Unknown, Verified 04/25/24 14:48) Unknown penicillin G Allergy (Unknown, Verified 04/25/24 14:48) Unknown Doxycycline Hyclate Allergy (Unknown, Uncoded 04/19/23 15:50) vomiting HPI Comments Details: Wily is a very pleasant 33 year old male who presents to the office today for follow up chronic pain and chronic opioid therapy management. Patient is prescribed oxycodone 5 mg QID prn. Patient arrived today with the expectation of having 72 pills, he presented 78 pills which were counted in the presence of two staff members and returned to the patient in the original prescription bottle. This demonstrates responsible attitude toward patient's opioid medications. Pain is reported today as 5/10 and last dose of pain medication was taken at noon today. Patient denies side effects including somnolence, constipation, itching, dyspnea, rash, dizziness or weakness. Had infusion today preparing for next surgery to treat SORIANO. Previous surgical site healed well. States planning to remove abscess are on his back next but waiting until fall so he can enjoy summer without a wound. 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 Answers questions appropriately. Fully engaged in examination. HEENT: Normocephalic. Hearing intact. Cardiac: External chest normal in appearance. Respiratory: No cough, audible wheezing or stridor. Abdomen: without gross distension. MS: No obvious swelling or deformities. Able to transition from sit to stand unassisted. Ambulates with bilaterally normal heel strike and toe off Neurological: Oriented to person, place, time and situation. Thought process intact. No gait abnormalities appreciated. Psychiatric: Appropriate mood and affect. Good judgment and insight. 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 No obvious signs of diversion, abuse or misuse of the opioid medications. Will send in prescription for oxycodone 5 mg QID prn with an advanced date of 05/14/24. Continue with plan as per surgeon in [place]. He is aware to notify the office of any changes to his opioid medications prior to filling any prescriptions from any other providers. All questions and concerns have been answered and patient agrees with the plan. Follow up in 1 month, sooner if needed Medications: Refilled oxycodone Partial Fill upon patient request. 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
[2024-04-25 14:48] VITALS: BP 116/72; PULSE 85; O2SAT 96; BMI 30.3
== END 2024-04-25 15:04 | disposition home or self-care (01) ==
PROVIDERS: PCP Hospitalist; Visit Provider Registered Nurse Emergency
DX: L73.2 Hidradenitis suppurativa (principal); Z79.891 Long term (current) use of opiate analgesic
CPT/HCPCS: 99213

== ENCOUNTER → 2024-04-25 14:43 | Outpatient (BNVA) | payer MEDICARE, MEDICAID, SELFPAY | PROVIDERS: PCP Hospitalist; Visit Provider Registered Nurse Emergency | DX: Z51.81 Encounter for therapeutic drug level monitoring (principal); L73.2 Hidradenitis suppurativa; Z79.891 Long term (current) use of opiate analgesic | CPT/HCPCS: 99212 ==

== ENCOUNTER 2024-05-23 14:41 | Outpatient (AMB) | payer MEDICARE, MEDICAID, SELFPAY ==
--- NOTE | 2024-05-23 14:43 | A.OFFVIS_ITS ---
Vital Signs 05/23/24 14:44 Height 5 ft 9 in Weight 205 lb BMI 30.3 BP 110/67 Blood Pressure Location Lt brachial Position Sitting Intake Visit Reasons: Pill Count Allergies cephalexin Allergy (Unknown, Verified 04/25/24 14:48) Unknown penicillin G Allergy (Unknown, Verified 04/25/24 14:48) Unknown Doxycycline Hyclate Allergy (Unknown, Uncoded 04/19/23 15:50) vomiting HPI Comments Details: Wily is a very pleasant 34 year old male who presents to the office today for follow up chronic pain and chronic opioid therapy management. Patient is prescribed oxycodone 5 mg QID prn. Patient arrived today with the expectation of having 80 pills, he presented 84 pills which were counted in the presence of two staff members and returned to the patient in the original prescription bottle. This demonstrates responsible attitude toward patient's opioid medications. Pain is reported today as 5/10 and last dose of pain medication was taken at noon today. Patient denies side effects including somnolence, constipation, itching, dyspnea, rash, dizziness or weakness. Continues with plan for next surgery in [place] for his SORIANO. Will be excising area on his back. 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 Answers questions appropriately. Fully engaged in examination. HEENT: Normocephalic. Hearing intact. Cardiac: External chest normal in appearance. Respiratory: No cough, audible wheezing or stridor. Abdomen: without gross distension. MS: No obvious swelling or deformities. Able to transition from sit to stand unassisted. Ambulates with bilaterally normal heel strike and toe off Neurological: Oriented to person, place, time and situation. Thought process intact. No gait abnormalities appreciated. Psychiatric: Appropriate mood and affect. Good judgment and insight. 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 No obvious signs of diversion, abuse or misuse of the opioid medications. Will send in prescription for oxycodone 5 mg QID prn with an advanced date of 06/13/24. Continue with plan as per surgeon in [place], aware to notify the office of any changes to his opioid medications prior to filling any prescriptions from any other providers. All questions and concerns have been answered and patient agrees with the plan. Follow up in 1 month, sooner if needed Medications: Refilled oxycodone Partial Fill upon patient request. 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
[2024-05-23 14:44] VITALS: BP 110/67; BMI 30.3
== END 2024-05-23 15:16 | disposition home or self-care (01) ==
PROVIDERS: PCP Hospitalist; Visit Provider Registered Nurse Emergency
DX: L73.2 Hidradenitis suppurativa (principal); Z79.891 Long term (current) use of opiate analgesic
CPT/HCPCS: 99214

== ENCOUNTER → 2024-05-23 14:41 | Outpatient (BNVA) | payer MEDICARE, MEDICAID, SELFPAY | PROVIDERS: PCP Hospitalist; Visit Provider Registered Nurse Emergency | DX: Z51.81 Encounter for therapeutic drug level monitoring (principal); L73.2 Hidradenitis suppurativa; Z79.891 Long term (current) use of opiate analgesic | CPT/HCPCS: 99212 ==

== ENCOUNTER 2024-07-04 14:18 | Outpatient (AMB) | payer MEDICARE, MEDICAID, SELFPAY ==
[2024-07-04 14:30] VITALS: BP 110/70; PULSE 65; O2SAT 99; BMI 29.5
--- NOTE | 2024-07-04 14:30 | A.OFFVIS_ITS ---
Vital Signs 07/04/24 14:30 Height 5 ft 9 in Weight 200 lb BMI 29.5 BP 110/70 Blood Pressure Location Lt brachial Position Sitting Pulse 65 Pulse Source Pulse Oximeter Pulse Oximetry (%) 99 Oxygen Delivery Method Room Air Intake Visit Reasons: PILL COUNT Allergies cephalexin Allergy (Unknown, Verified 04/25/24 14:48) Unknown penicillin G Allergy (Unknown, Verified 04/25/24 14:48) Unknown Doxycycline Hyclate Allergy (Unknown, Uncoded 04/19/23 15:50) vomiting HPI Comments Details: Wily is a very pleasant 34 year old male who presents to the office today for follow up chronic pain and chronic opioid therapy management. Patient is prescribed oxycodone 5 mg QID prn. Patient arrived today with the expectation of having 36 pills, he presented 40 pills which were counted in the presence of two staff members and returned to the patient in the original prescription bottle. This demonstrates responsible attitude toward patient's opioid medications. Pain is reported today as 6/10 and last dose of pain medication was taken at noon today. Patient denies side effects including somnolence, constipation, itching, dyspnea, rash, dizziness or weakness. Plan for surgery in [place] on July 24. After previous surgery he required increase in his opioid pain medication. This was discussed with him today further. 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 Answers questions appropriately. Fully engaged in examination. HEENT: Normocephalic. Hearing intact. Cardiac: External chest normal in appearance. Respiratory: No cough, audible wheezing or stridor. Abdomen: without gross distension. MS: No obvious swelling or deformities. Able to transition from sit to stand unassisted. Ambulates with bilaterally normal heel strike and toe off Neurological: Oriented to person, place, time and situation. Thought process intact. No gait abnormalities appreciated. Psychiatric: Appropriate mood and affect. Good judgment and insight. 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 No obvious signs of diversion, abuse or misuse of the opioid medications. Will send in prescription for oxycodone 5 mg QID prn with an advanced date of 07/14/24. Continue with plan as per surgeon in [place], aware to notify the office of any changes to his opioid medications prior to filling any prescriptions from any other providers. Patient was advised that he can take up to 5 tablets daily for postop pain if needed. We will schedule the next pill count for August 07, they were advised to call if he is in too much pain to make the appointment. Appointment could be postponed by one-week and short script will be sent to cover. As per last surgery we will manage his postop pain, surgeon's deferred this to our office. Patient will call the office to update us on status and any changes. All questions and concerns have been answered and patient agrees with the plan. Follow up in 1 month, sooner if needed Medications: Refilled oxycodone Partial Fill upon patient request. 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
== END 2024-07-04 15:05 | disposition home or self-care (01) ==
PROVIDERS: PCP Hospitalist; Visit Provider Registered Nurse Emergency
DX: L73.2 Hidradenitis suppurativa (principal); Z79.891 Long term (current) use of opiate analgesic
CPT/HCPCS: 99214

== ENCOUNTER → 2024-07-04 14:18 | Outpatient (BNVA) | payer MEDICARE, MEDICAID, SELFPAY | PROVIDERS: PCP Hospitalist; Visit Provider Registered Nurse Emergency | DX: L73.2 Hidradenitis suppurativa (principal); Z79.891 Long term (current) use of opiate analgesic | CPT/HCPCS: 99212 ==

== ENCOUNTER 2024-08-07 14:26 | Outpatient (AMB) | payer MEDICARE, MEDICAID, SELFPAY ==
[2024-08-07 14:33] VITALS: BP 108/59; PULSE 95; O2SAT 97; BMI 29.5
--- NOTE | 2024-08-07 14:33 | MHC.OFFVIS ---
Vital Signs 08/07/24 14:33 Height 5 ft 9 in Weight 200 lb BMI 29.5 BP 108/59 L Blood Pressure Location Rt brachial Position Sitting Pulse 95 Pulse Source Pulse Oximeter Pulse Oximetry (%) 97 Oxygen Delivery Method Room Air Intake Visit Reasons: PILL COUNT Allergies cephalexin Allergy (Unknown, Verified 08/07/24 14:34) Unknown penicillin G Allergy (Unknown, Verified 08/07/24 14:34) Unknown Doxycycline Hyclate Allergy (Unknown, Uncoded 08/07/24 14:34) vomiting Medication List - Last Reconciled 08/07/24 by Alice Fernandez ertapenem 1 g IM DAILY infliximab (Remicade) IV lactobacillus combination no.4 (Probiotic) 3,000 mmu cells PO DAILY metronidazole 500 mg PO TID moxifloxacin mg PO oxycodone 5 mg PO QID PRN 30 days rifampin 300 mg PO BID HPI Comments Details: Wily is a very pleasant 34 year old male who presents to the office today for follow up chronic pain and chronic opioid therapy management. Patient is prescribed oxycodone 5 mg QID prn. Patient arrived today with the expectation of having 36 pills, he presented 40 pills which were counted in the presence of two staff members and returned to the patient in the original prescription bottle. This demonstrates responsible attitude toward patient's opioid medications. Pain is reported today as 6/10 and last dose of pain medication was taken at noon today. Patient denies side effects including somnolence, constipation, itching, dyspnea, rash, dizziness or weakness. Patient underwent surgery in [place] 2 weeks ago. Tolerated well. Recently had follow-up and reports everything is healing well After surgery he was advised to increase his medication to 2 tabs 4 times daily for 2-3 days. This manage his pain well. 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 Answers questions appropriately. Fully engaged in examination. HEENT: Normocephalic. Hearing intact. Cardiac: External chest normal in appearance. Respiratory: No cough, audible wheezing or stridor. Abdomen: without gross distension. MS: No obvious swelling or deformities. Ambulates with bilaterally normal heel strike and toe off Neurological: Oriented to person, place, time and situation. Thought process intact. Psychiatric: Appropriate mood and affect. Good judgment and insight. Assessment & Plan Assessment & Plan (1) correction (current) use of opiate analgesic: Code(s): Z79.891 - correction (current) use of opiate analgesic Category: Medical (2) Hidradenitis suppurativa: Code(s): L73.2 - Hidradenitis suppurativa Category: Medical (3) Opioid contract exists: Code(s): Z79.891 - correction (current) use of opiate analgesic Category: Medical Plan [place] was reviewed and without concerns. No obvious signs of diversion, abuse or misuse of the opioid medications. Will send in prescription for oxycodone 5 mg QID prn with an advanced date of 08/12/24. Noticed been attached to a prescription requesting the patient be allowed to refill early as he was given a dose increase for postop pain Follow up with surgeon in [place] as planned All questions and concerns have been answered and patient agrees with the plan. Follow up in 1 month, sooner if needed Medications: Refilled oxycodone Partial Fill upon patient request. 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
== END 2024-08-07 14:51 | disposition home or self-care (01) ==
PROVIDERS: PCP Hospitalist; Visit Provider Registered Nurse Emergency
DX: L73.2 Hidradenitis suppurativa (principal); Z79.891 Long term (current) use of opiate analgesic
CPT/HCPCS: 99214; G2211

== ENCOUNTER → 2024-08-07 14:26 | Outpatient (BNVA) | payer MEDICARE, SELFPAY | PROVIDERS: PCP Hospitalist; Visit Provider Registered Nurse Emergency | DX: Z51.81 Encounter for therapeutic drug level monitoring (principal); L73.2 Hidradenitis suppurativa; Z79.891 Long term (current) use of opiate analgesic | CPT/HCPCS: 99212 ==

== ENCOUNTER 2024-09-04 15:25 | Outpatient (AMB) | payer MEDICARE, MEDICAID, SELFPAY ==
--- NOTE | 2024-09-04 15:31 | MHC.OFFVIS ---
Vital Signs 09/04/24 15:32 Height 5 ft 9 in Weight 200 lb BMI 29.5 BP 110/68 Blood Pressure Location Lt brachial Position Sitting Pulse 75 Pulse Source Pulse Oximeter Pulse Oximetry (%) 95 Oxygen Delivery Method Room Air Intake Visit Reasons: Pill Count Allergies cephalexin Allergy (Unknown, Verified 09/04/24 15:32) Unknown penicillin G Allergy (Unknown, Verified 09/04/24 15:32) Unknown Doxycycline Hyclate Allergy (Unknown, Uncoded 09/04/24 15:32) vomiting Medication List - Last Reconciled 09/04/24 by Alice Fernandez ertapenem 1 g IM DAILY infliximab (Remicade) IV lactobacillus combination no.4 (Probiotic) 3,000 mmu cells PO DAILY metronidazole 500 mg PO TID moxifloxacin mg PO oxycodone 5 mg PO QID PRN 30 days rifampin 300 mg PO BID HPI Comments Details: Wily is a very pleasant 34 year old male who presents to the office today for follow up chronic pain and chronic opioid therapy management. Patient is prescribed oxycodone 5 mg QID prn. Patient arrived today with the expectation of having 24 pills, he presented 36 pills which were counted in the presence of two staff members and returned to the patient in the original prescription bottle. This demonstrates responsible attitude toward patient's opioid medications. Pain is reported today as 3/10 and last dose of pain medication was taken at noon today. Patient denies side effects including somnolence, constipation, itching, dyspnea, rash, dizziness or weakness. Recovering well from surgery last month. Wounds are healing well. Has follow-up at the end of this month in [place] with surgeon [facility] Medical History Hidradenitis suppurativa [facility] (current) use of opiate analgesic Review of Systems Const All systems reviewed & are unremarkable except as noted in HPI and below Physical Exam Vital Signs: Last Vital Signs Pulse 75 09/04/24 15:32 BP 110/68 09/04/24 15:32 Pulse Ox 95 09/04/24 15:32 Oxygen Delivery Method Room Air 09/04/24 15:32 BMI result Body Mass Index 29.5 General: awake, alert, oriented. Answers questions appropriately. Fully engaged in examination. HEENT: Normocephalic. Hearing intact. Postop surgical incision left flank healing well. No signs of infection. Cardiac: External chest normal in appearance. Respiratory: No cough, audible wheezing or stridor. Abdomen: without gross distension. MS: No obvious swelling or deformities. Ambulates with bilaterally normal heel strike and toe off Neurological: Oriented to person, place, time and situation. Thought process intact. Psychiatric: Appropriate mood and affect. Good judgment and insight. 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 No obvious signs of diversion, abuse or misuse of the opioid medications. Will send in prescription for oxycodone 5 mg QID prn with an advanced date of 09/13/24. Follow up with surgeon in [place] as planned All questions and concerns have been answered and patient agrees with the plan. Follow up in 1 month, sooner if needed Medications: Refilled oxycodone Partial Fill upon patient request. 5 mg PO QID PRN 120 tabs 0RF pain 30 days L73.2 - Hidradenitis suppurativa, Z79.891 - [facility] (current) use of opiate analgesic Coding Level of Care Code Est Pt Level 4 (03124) Complex EM visit Add On G2211 Diagnoses [facility] (current) use of opiate analgesic Z79.891 Hidradenitis suppurativa L73.2 Opioid contract exists Z79.891
[2024-09-04 15:32] VITALS: BP 110/68; PULSE 75; O2SAT 95; BMI 29.5
== END 2024-09-04 15:56 | disposition home or self-care (01) ==
PROVIDERS: PCP Hospitalist; Visit Provider Registered Nurse Emergency
DX: Z79.891 Long term (current) use of opiate analgesic (principal); L73.2 Hidradenitis suppurativa
CPT/HCPCS: 99214; G2211

== ENCOUNTER → 2024-09-04 15:25 | Outpatient (BNVA) | payer MEDICARE, SELFPAY | PROVIDERS: PCP Hospitalist; Visit Provider Registered Nurse Emergency | DX: Z51.81 Encounter for therapeutic drug level monitoring (principal); L73.2 Hidradenitis suppurativa; Z79.891 Long term (current) use of opiate analgesic | CPT/HCPCS: 99212 ==

== ENCOUNTER 2024-10-03 14:57 | Outpatient (AMB) | payer MEDICARE, SELFPAY ==
[2024-10-03 15:04] VITALS: BP 114/60; PULSE 73; O2SAT 97; BMI 31.0
--- NOTE | 2024-10-03 15:04 | A.OFFVIS_ITS ---
Vital Signs 10/03/24 15:04 Height 5 ft 9 in Weight 210 lb BMI 31.0 BP 114/60 Blood Pressure Location Lt brachial Position Sitting Pulse 73 Pulse Source Pulse Oximeter Pulse Oximetry (%) 97 Oxygen Delivery Method Room Air Intake Visit Reasons: Pill Count Allergies cephalexin Allergy (Unknown, Verified 10/03/24 15:05) Unknown penicillin G Allergy (Unknown, Verified 10/03/24 15:05) Unknown Doxycycline Hyclate Allergy (Unknown, Uncoded 10/03/24 15:05) vomiting Medication List - Last Reconciled 10/03/24 by Alice Fernandez ertapenem 1 g IM DAILY infliximab (Remicade) IV lactobacillus combination no.4 (Probiotic) 3,000 mmu cells PO DAILY metronidazole 500 mg PO TID moxifloxacin mg PO oxycodone 5 mg PO QID PRN 30 days rifampin 300 mg PO BID HPI Comments Details: Wily presents back to the office today for follow up chronic pain and chronic opioid therapy management. Patient is prescribed oxycodone 5 mg QID prn. Patient arrived today with the expectation of having 44 pills, he presented 46 pills which were counted in the presence of two staff members and returned to the patient in the original prescription bottle. This demonstrates responsible attitude toward patient's opioid medications. Pain is reported today as 4/10 and last dose of pain medication was taken at noon today. Patient denies side effects including somnolence, constipation, itching, dyspnea, rash, dizziness or weakness. Reports he has been suffering with some muscle spasms of his lower back. Most likely attributed to decreased activity after having recent surgery. Muscle spasms are worse in the morning but will improve throughout the day with gentle stretching and activity [facility] Medical History Hidradenitis suppurativa [facility] (current) use of opiate analgesic Review of Systems Const All systems reviewed & are unremarkable except as noted in HPI and below Physical Exam Vital Signs: Last Vital Signs Pulse 73 10/03/24 15:04 BP 114/60 10/03/24 15:04 Pulse Ox 97 10/03/24 15:04 Oxygen Delivery Method Room Air 10/03/24 15:04 BMI result Body Mass Index 31.0 General: awake, alert, oriented. Answers questions appropriately. Fully engaged in examination. HEENT: Normocephalic. Hearing intact. Postop surgical incision left flank healing well. No signs of infection. Cardiac: External chest normal in appearance. Respiratory: No cough, audible wheezing or stridor. Abdomen: without gross distension. MS: No obvious swelling or deformities. Ambulates with bilaterally normal heel strike and toe off Neurological: Oriented to person, place, time and situation. Thought process intact. Psychiatric: Appropriate mood and affect. Good judgment and insight. 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 No obvious signs of diversion, abuse or misuse of the opioid medications. Will send in prescription for oxycodone 5 mg QID prn with an advanced date of 10/15/24. methocarbamol 500 mg p.o. t.i.d. as needed. Patient advised on cautions for use. Do not take with oxycodone, take them at least 2 hours apart. All questions and concerns have been answered and patient agrees with the plan. Follow up in 1 month, sooner if needed Medications: New methocarbamol No driving while taking this medication. Do no take with alcohol or other MANAGER SIGN Depressants 500 mg PO TID PRN 90 tabs 1RF muscle spasm Refilled oxycodone Partial Fill upon patient request. 5 mg PO QID PRN 120 tabs 0RF pain 30 days L73.2 - Hidradenitis suppurativa, Z79.891 - alf (current) use of opiate analgesic Coding Level of Care Code Est Pt Level 4 (59975) Complex EM visit Add On G2211 Diagnoses alf (current) use of opiate analgesic Z79.891 Hidradenitis suppurativa L73.2 Opioid contract exists Z79.891
== END 2024-10-03 15:17 | disposition home or self-care (01) ==
PROVIDERS: PCP Hospitalist; Visit Provider Registered Nurse Emergency
DX: Z79.891 Long term (current) use of opiate analgesic (principal); L73.2 Hidradenitis suppurativa
CPT/HCPCS: 99214; G2211

== ENCOUNTER → 2024-10-03 14:57 | Outpatient (BNVA) | payer MEDICARE, SELFPAY | PROVIDERS: PCP Hospitalist; Visit Provider Registered Nurse Emergency | DX: L73.2 Hidradenitis suppurativa (principal); G89.29 Other chronic pain; Z51.81 Encounter for therapeutic drug level monitoring; Z79.891 Long term (current) use of opiate analgesic | CPT/HCPCS: 99212 ==

== ENCOUNTER 2024-10-31 15:04 | Outpatient (AMB) | payer MEDICARE, MEDICAID, SELFPAY ==
--- NOTE | 2024-10-31 15:09 | A.OFFVIS_ITS ---
Vital Signs 10/31/24 15:17 Height 5 ft 9 in Weight 208 lb BMI 30.7 BP 116/79 Blood Pressure Location Lt brachial Position Sitting Pulse 77 Pulse Source Pulse Oximeter Pulse Oximetry (%) 97 Oxygen Delivery Method Room Air Intake Visit Reasons: Pill Count Intake Note: Wily comes in today for a pill count to oxycodone, patient should have 60 tablets and presents with 62 tablets which he last took today 10/31/24 at 12pm. 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 Patient is prescribed oxycodone 5 mg QID prn. Patient arrived today with the expectation of having 60 pills, he presented 62 pills which were counted in the presence of two staff members and returned to the patient in the original prescription bottle. This demonstrates responsible attitude toward patient's opioid medications. Pain is reported today as 5/10 and last dose of pain medication was taken at noon today. Patient denies side effects including somnolence, constipation, itching, dyspnea, rash, dizziness or weakness. Reports improvement in his muscle spasms with the methocarbamol however this medication was not covered by insurance therefore get the paddle pocket. Insurance is requesting a tried tizanidine instead. 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 Answers questions appropriately. Fully engaged in examination. HEENT: Normocephalic. Hearing intact. Postop surgical incision left flank healing well. No signs of infection. Cardiac: External chest normal in appearance. Respiratory: No cough, audible wheezing or stridor. Abdomen: without gross distension. MS: No obvious swelling or deformities. Ambulates with bilaterally normal heel strike and toe off Neurological: Oriented to person, place, time and situation. Thought process intact. Psychiatric: Appropriate mood and affect. Good judgment and insight. 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 No obvious signs of diversion, abuse or misuse of the opioid medications. Will send in prescription for oxycodone 5 mg QID prn with an advanced date of 11/16/24. Discontinue methocarbamol, not covered by patient's insurance. New prescription for tizanidine 2 mg p.o. 3 times daily as needed. Patient advised on cautions raise. Do not take with oxycodone, take them at least 2 hours apart. All questions and concerns have been answered and patient agrees with the plan. Follow up in 1 month, sooner if needed Medications: New tizanidine 2 mg PO TID PRN 90 caps 1RF muscle spasticity Refilled oxycodone Partial Fill upon patient request. 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
[2024-10-31 15:17] VITALS: BP 116/79; PULSE 77; O2SAT 97; BMI 30.7
== END 2024-10-31 15:36 | disposition home or self-care (01) ==
PROVIDERS: PCP Hospitalist; Visit Provider Registered Nurse Emergency
DX: Z79.891 Long term (current) use of opiate analgesic (principal); L73.2 Hidradenitis suppurativa
CPT/HCPCS: 99214; G2211

== ENCOUNTER → 2024-10-31 15:04 | Outpatient (BNVA) | payer MEDICARE, SELFPAY | PROVIDERS: PCP Hospitalist; Visit Provider Registered Nurse Emergency | DX: L73.2 Hidradenitis suppurativa (principal); Z79.891 Long term (current) use of opiate analgesic | CPT/HCPCS: 99212 ==

== ENCOUNTER 2024-12-05 15:29 | Outpatient (AMB) | payer MEDICARE, MEDICAID, SELFPAY ==
--- NOTE | 2024-12-05 15:32 | A.OFFVIS_ITS ---
Vital Signs 12/05/24 15:40 Height 5 ft 9 in Weight 208 lb BMI 30.7 BP 124/57 L Blood Pressure Location Lt brachial Position Sitting Pulse 65 Pulse Source Pulse Oximeter Intake Visit Reasons: Pill Count Intake Note: Wily comes in today for a pill count to oxycodone, patient should have 48 tablets and presents with 46 tablets which he last took today 12/05/24 at 12pm. Pain today 05/22. Patient resigned opioid contract in office, copy of signed contract was provided to patient. Machine Overhauler Required: No Accompanied by: Spouse Allergies cephalexin Allergy (Unknown, Verified 12/05/24 15:41) Unknown penicillin G Allergy (Unknown, Verified 12/05/24 15:41) Unknown Doxycycline Hyclate Allergy (Unknown, Uncoded 10/03/24 15:05) vomiting HPI Comments Details: Wily presents back to the office today, accompanied by his significant other, for follow up chronic pain and chronic opioid therapy management. Patient is prescribed oxycodone 5 mg QID prn. Patient arrived today with the expectation of having 48 pills, he presented 46 pills which were counted in the presence of two staff members and returned to the patient in the original prescription bottle. This demonstrates responsible attitude toward patient's opioid medications. Pain is reported today as 05/22 and last dose of pain medication was taken at noon today. Patient denies side effects including somnolence, constipation, itching, dyspnea, rash, dizziness or weakness. Started on new medication for his hidradenitis suppurativa, now taking BIMZELX injections. Has noticed improvement in the inflammation. 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 Answers questions appropriately. Fully engaged in examination. HEENT: Normocephalic. Hearing intact. Postop surgical incision left flank healing well. No signs of infection. Cardiac: External chest normal in appearance. Respiratory: No cough, audible wheezing or stridor. Abdomen: without gross distension. MS: No obvious swelling or deformities. Ambulates with bilaterally normal heel strike and toe off Neurological: Oriented to person, place, time and situation. Thought process intact. Psychiatric: Appropriate mood and affect. Good judgment and insight. 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 No obvious signs of diversion, abuse or misuse of the opioid medications. Will send in prescription for oxycodone 5 mg QID prn Continue with as needed All questions and concerns have been answered and patient agrees with the plan. Follow up in 1 month, sooner if needed Medications: Refilled oxycodone Partial Fill upon patient request. 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
[2024-12-05 15:40] VITALS: BP 124/57; PULSE 65; BMI 30.7
== END 2024-12-05 15:59 | disposition home or self-care (01) ==
PROVIDERS: PCP Hospitalist; Visit Provider Registered Nurse Emergency
DX: L73.2 Hidradenitis suppurativa (principal); Z79.891 Long term (current) use of opiate analgesic
CPT/HCPCS: 99214; G2211

== ENCOUNTER → 2024-12-05 15:29 | Outpatient (BNVA) | payer MEDICARE, SELFPAY | PROVIDERS: PCP Hospitalist; Visit Provider Registered Nurse Emergency | DX: L73.2 Hidradenitis suppurativa (principal); G89.29 Other chronic pain; Z51.81 Encounter for therapeutic drug level monitoring; Z79.891 Long term (current) use of opiate analgesic | CPT/HCPCS: 99212 ==

== ENCOUNTER 2025-01-02 15:07 | Outpatient (AMB) | payer MEDICARE, MEDICAID, SELFPAY ==
--- NOTE | 2025-01-02 15:14 | MHC.OFFVIS ---
Vital Signs 01/02/25 15:22 Height 5 ft 9 in Weight 205 lb BMI 30.3 BP 118/76 Position Sitting Pulse 77 Pulse Source Pulse Oximeter Pulse Oximetry (%) 98 Oxygen Delivery Method Room Air Intake Visit Reasons: PILL COUNT Intake Note: Wily comes in for a pill count to oxycodone, patient should have 52 tablets and presents with 60 tablets which he last took today 01/02/25 at 12:30pm. Pain today 510 Airline Flight Attendant Required: No Accompanied by: Spouse Allergies cephalexin Allergy (Unknown, Verified 01/02/25 15:23) Unknown penicillin G Allergy (Unknown, Verified 01/02/25 15:23) Unknown Doxycycline Hyclate Allergy (Unknown, Uncoded 10/03/24 15:05) vomiting HPI Comments Details: Wily presents back to the office today, accompanied by his significant other, for follow up chronic pain and chronic opioid therapy management. Patient is prescribed oxycodone 5 mg QID prn. Patient arrived today with the expectation of having 52 pills, he presented 60 pills which were counted in the presence of two staff members and returned to the patient in the original prescription bottle. This demonstrates responsible attitude toward patient's opioid medications. Pain is reported today as 5/10 and last dose of pain medication was taken at 12:30pm today. Patient denies side effects including somnolence, constipation, itching, dyspnea, rash, dizziness or weakness. Continues with BIMZELX injections, tolerating well. Is helping with hidradenitis suppurativa symptoms, hoping to avoid further surgeries. 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 Answers questions appropriately. Fully engaged in examination. HEENT: Normocephalic. Hearing intact. Postop surgical incision left flank healing well. No signs of infection. Cardiac: External chest normal in appearance. Respiratory: No cough, audible wheezing or stridor. Abdomen: without gross distension. MS: No obvious swelling or deformities. Ambulates with bilaterally normal heel strike and toe off Neurological: Oriented to person, place, time and situation. Thought process intact. Psychiatric: Appropriate mood and affect. Good judgment and insight. 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 No obvious signs of diversion, abuse or misuse of the opioid medications. Will send in prescription for oxycodone 5 mg QID prn Continue with tizanidine as needed Follow up with surgery in [place] as planned All questions and concerns have been answered and patient agrees with the plan. Follow up in 1 month, sooner if needed Medications: Refilled oxycodone Partial Fill upon patient request. 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
[2025-01-02 15:22] VITALS: BP 118/76; PULSE 77; O2SAT 98; BMI 30.3
== END 2025-01-02 15:36 | disposition home or self-care (01) ==
PROVIDERS: PCP Hospitalist; Visit Provider Registered Nurse Emergency
DX: L73.2 Hidradenitis suppurativa (principal); Z79.891 Long term (current) use of opiate analgesic
CPT/HCPCS: 99214; G2211

== ENCOUNTER → 2025-01-02 15:07 | Outpatient (BNVA) | payer MEDICARE, SELFPAY | PROVIDERS: PCP Hospitalist; Visit Provider Registered Nurse Emergency | DX: Z51.81 Encounter for therapeutic drug level monitoring (principal); L73.2 Hidradenitis suppurativa; Z79.891 Long term (current) use of opiate analgesic | CPT/HCPCS: 99212 ==

== ENCOUNTER 2025-01-30 15:36 | Outpatient (AMB) | payer MEDICARE, MEDICAID, SELFPAY ==
--- NOTE | 2025-01-30 15:47 | MHC.OFFVIS ---
Vital Signs 01/30/25 15:52 Height 5 ft 9 in BP 117/66 Blood Pressure Location Lt brachial Position Sitting Pulse 73 Pulse Source Pulse Oximeter Intake Visit Reasons: PILL COUNT Intake Note: Wily comes in today for a pill count to oxycodone, patient should have 60 tablets and presents with 64 tablets which he last took today 01/30/25 at 12pm. 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 Patient is prescribed oxycodone 5 mg QID prn. Patient arrived today with the expectation of having 60 pills, he presented 64 pills which were counted in the presence of two staff members and returned to the patient in the original prescription bottle. This demonstrates responsible attitude toward patient's opioid medications. Pain is reported today as 05/22 and last dose of pain medication was taken at 12:00 this afternoon. Patient denies side effects including somnolence, constipation, itching, dyspnea, rash, dizziness or weakness. Continues with BIMZELX injections which he feel is helping with hidradenitis suppurativa symptoms. Plan for surgery again in the fall is symptoms persist. 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 Answers questions appropriately. Fully engaged in examination. HEENT: Normocephalic. Hearing intact. Cardiac: External chest normal in appearance. Respiratory: No cough, audible wheezing or stridor. Abdomen: without gross distension. MS: No obvious swelling or deformities. Ambulates with bilaterally normal heel strike and toe off Neurological: Oriented to person, place, time and situation. Thought process intact. Psychiatric: Appropriate mood and affect. Good judgment and insight. 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 No obvious signs of diversion, abuse or misuse of the opioid medications. Will send in prescription for oxycodone 5 mg QID prn All questions and concerns have been answered and patient agrees with the plan. Follow up in 1 month, sooner if needed Medications: Refilled oxycodone Partial Fill upon patient request. 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
[2025-01-30 15:52] VITALS: BP 117/66; PULSE 73
== END 2025-01-30 16:02 | disposition home or self-care (01) ==
LOC: HO.PMC 15:37
PROVIDERS: PCP Hospitalist; Visit Provider Nurse Practitioner Family
DX: Z79.891 Long term (current) use of opiate analgesic (principal); L73.2 Hidradenitis suppurativa
CPT/HCPCS: 99214; G2211

== ENCOUNTER → 2025-01-30 15:36 | Outpatient (BNVA) | payer MEDICARE, MEDICAID, SELFPAY | PROVIDERS: PCP Hospitalist; Visit Provider Nurse Practitioner Family | DX: L73.2 Hidradenitis suppurativa (principal); Z51.81 Encounter for therapeutic drug level monitoring; Z79.891 Long term (current) use of opiate analgesic | CPT/HCPCS: 99212 ==

== ENCOUNTER 2025-02-26 15:23 | Outpatient (AMB) | payer MEDICARE, MEDICAID, SELFPAY ==
[2025-02-26 15:30] VITALS: BP 118/80; PULSE 77; RESP 16; O2SAT 99; BMI 30.3
--- NOTE | 2025-02-26 15:30 | MHC.OFFVIS ---
Vital Signs 02/26/25 15:30 Height 5 ft 9 in Weight 205 lb BMI 30.3 BP 118/80 Blood Pressure Location Lt brachial Position Sitting Respiration 16 Pulse 77 Pulse Source Pulse Oximeter Pulse Oximetry (%) 99 Oxygen Delivery Method Room Air Intake Visit Reasons: Pill count Varnish Thinner Required: No Allergies cephalexin Allergy (Unknown, Verified 02/26/25 15:31) Unknown penicillin G Allergy (Unknown, Verified 02/26/25 15:31) Unknown Doxycycline Hyclate Allergy (Unknown, Uncoded 02/26/25 15:31) vomiting Medication List - Last Reconciled 02/26/25 by Sumaya Judd LPN bimekizumab-bkzx (Bimzelx Autoinjector) 320 mg subcut Q2W ertapenem 1 g IM DAILY infliximab (Remicade) IV lactobacillus combination no.4 (Probiotic) 3,000 mmu cells PO DAILY metronidazole 500 mg PO TID moxifloxacin mg PO oxycodone 5 mg PO QID PRN 30 days rifampin 300 mg PO BID tizanidine 2 mg PO TID HPI Comments Details: Wily presents back to the office today, accompanied by his significant other, for follow up chronic pain and chronic opioid therapy management. Patient is prescribed oxycodone 5 mg QID prn. Patient arrived today with the expectation of having 80 pills, he presented 84 pills which were counted in the presence of two staff members and returned to the patient in the original prescription bottle. This demonstrates responsible attitude toward patient's opioid medications. Pain is reported today as 4/10 and last dose of pain medication was taken at noon today. Patient denies side effects including somnolence, constipation, itching, dyspnea, rash, dizziness or weakness. [facility] Medical History Hidradenitis suppurativa penitentiary (current) use of opiate analgesic Review of Systems Const All systems reviewed & are unremarkable except as noted in HPI and below Physical Exam General: awake, alert, oriented. Answers questions appropriately. Fully engaged in examination. HEENT: Normocephalic. Hearing intact. Cardiac: External chest normal in appearance. Respiratory: No cough, audible wheezing or stridor. Abdomen: without gross distension. MS: No obvious swelling or deformities. Ambulates with bilaterally normal heel strike and toe off Neurological: Oriented to person, place, time and situation. Thought process intact. Psychiatric: Appropriate mood and affect. Good judgment and insight. 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 No obvious signs of diversion, abuse or misuse of the opioid medications. Will send in prescription for oxycodone 5 mg QID prn with fill date 03/19/2025, no refills. All questions and concerns have been answered and patient agrees with the plan. Follow up in 1 month, sooner if needed Medications: Refilled oxycodone Partial Fill upon patient request. 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
== END 2025-02-26 15:46 | disposition home or self-care (01) ==
LOC: HO.PMC 15:23
PROVIDERS: PCP Hospitalist; Visit Provider Registered Nurse Emergency
DX: Z79.891 Long term (current) use of opiate analgesic (principal); L73.2 Hidradenitis suppurativa
CPT/HCPCS: 99213; G2211

== ENCOUNTER → 2025-02-26 15:23 | Outpatient (BNVA) | payer MEDICARE, MEDICAID, SELFPAY | PROVIDERS: PCP Hospitalist; Visit Provider Registered Nurse Emergency | DX: L73.2 Hidradenitis suppurativa (principal); Z51.81 Encounter for therapeutic drug level monitoring; Z79.891 Long term (current) use of opiate analgesic | CPT/HCPCS: 99212 ==

== ENCOUNTER 2025-04-02 15:11 | Outpatient (AMB) | payer MEDICARE, MEDICAID, SELFPAY ==
[2025-04-02 15:22] VITALS: BP 113/55; PULSE 68
--- NOTE | 2025-04-02 15:22 | A.OFFVIS_ITS ---
Vital Signs 04/02/25 15:22 BP 113/55 L Blood Pressure Location Lt brachial Position Sitting Pulse 68 Intake Visit Reasons: Pill count Intake Note: patient states he last took oxy 5mg today at 11am Allergies cephalexin Allergy (Unknown, Verified 04/02/25 15:25) Unknown penicillin G Allergy (Unknown, Verified 04/02/25 15:25) Unknown Doxycycline Hyclate Allergy (Unknown, Uncoded 02/26/25 15:31) vomiting HPI Comments Details: Wily presents back to the office today, accompanied by his significant other, for follow up chronic pain and chronic opioid therapy management. Patient is prescribed oxycodone 5 mg QID prn. Patient arrived today with the expectation of having 64 pills, he presented 67 pills which were counted in the presence of two staff members and returned to the patient in the original prescription bottle. This demonstrates responsible attitude toward patient's opioid medications. Pain is reported today as 5/10 and last dose of pain medication was taken at 11am today. Patient denies side effects including somnolence, constipation, itching, dyspnea, rash, dizziness or weakness. Continues on injectable meds for hidradenitis suppurativa. Followed by surgeon in [place], no new procedures pending. 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 Answers questions appropriately. Fully engaged in examination. HEENT: Normocephalic. Hearing intact. Cardiac: External chest normal in appearance. Respiratory: No cough, audible wheezing or stridor. Abdomen: without gross distension. MS: No obvious swelling or deformities. Ambulates with bilaterally normal heel strike and toe off Neurological: Oriented to person, place, time and situation. Thought process intact. Psychiatric: Appropriate mood and affect. Good judgment and insight. 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 No obvious signs of diversion, abuse or misuse of the opioid medications. Will send in prescription for oxycodone 5 mg QID prn Narcan was sent to the pharmacy All questions and concerns have been answered and patient agrees with the plan. Follow up in 5 weeks, sooner if needed Medications: New naloxone 4 mg/actuation (Narcan) spray 1 dose into ONE nostril; alternate nostrils w each dose until help arrives 4 mg intranasal Q2M PRN 2 ea 1RF opioid overdose Refilled oxycodone Partial Fill upon patient request. 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
== END 2025-04-02 15:34 | disposition home or self-care (01) ==
LOC: HO.PMC 15:12
PROVIDERS: PCP Hospitalist; Visit Provider Registered Nurse Emergency
DX: Z79.891 Long term (current) use of opiate analgesic (principal); L73.2 Hidradenitis suppurativa
CPT/HCPCS: 99213; G2211

== ENCOUNTER → 2025-04-02 15:11 | Outpatient (BNVA) | payer MEDICARE, MEDICAID, SELFPAY | PROVIDERS: PCP Hospitalist; Visit Provider Registered Nurse Emergency | DX: Z51.81 Encounter for therapeutic drug level monitoring (principal); L73.2 Hidradenitis suppurativa; Z79.891 Long term (current) use of opiate analgesic | CPT/HCPCS: 99212 ==

== ENCOUNTER 2025-05-07 14:48 | Outpatient (AMB) | payer MEDICARE, MEDICAID, SELFPAY ==
--- NOTE | 2025-05-07 14:53 | MHC.OFFVIS ---
Vital Signs 05/07/25 14:54 Height 5 ft 9 in Weight 195 lb BMI 28.8 BP 116/68 Blood Pressure Location Rt brachial Position Sitting Respiration 16 Pulse 71 Pulse Source Pulse Oximeter Pulse Oximetry (%) 97 Oxygen Delivery Method Room Air Intake Visit Reasons: Pill Count Intake Note: Patient here for a routine pill count of Oxycodone. per directions patient should have 44 pills. Patient presented 52 pills. Patient Care Associate Required: No Accompanied by: Life Partner Allergies cephalexin Allergy (Unknown, Verified 05/07/25 14:57) Unknown penicillin G Allergy (Unknown, Verified 05/07/25 14:57) Unknown Doxycycline Hyclate Allergy (Unknown, Uncoded 02/26/25 15:31) vomiting HPI Comments Details: Wily presents back to the office today, accompanied by his significant other, for follow up chronic pain and chronic opioid therapy management. Patient is prescribed oxycodone 5 mg QID prn. Patient arrived today with the expectation of having 44 pills, he presented 52 pills which were counted in the presence of two staff members and returned to the patient in the original prescription bottle. This demonstrates responsible attitude toward patient's opioid medications. Pain is reported today as 5/10 and last dose of pain medication was taken this morning Patient denies side effects including somnolence, constipation, itching, dyspnea, rash, dizziness or weakness. [facility] Medical History Hidradenitis suppurativa [facility] (current) use of opiate analgesic Review of Systems Const All systems reviewed & are unremarkable except as noted in HPI and below Physical Exam Vital Signs: Last Vital Signs Pulse 71 05/07/25 14:54 Resp 16 05/07/25 14:54 BP 116/68 05/07/25 14:54 Pulse Ox 97 05/07/25 14:54 Oxygen Delivery Method Room Air 05/07/25 14:54 BMI result Body Mass Index 28.8 General: awake, alert, oriented. Answers questions appropriately. Fully engaged in examination. HEENT: Normocephalic. Hearing intact. Cardiac: External chest normal in appearance. Respiratory: No cough, audible wheezing or stridor. Abdomen: without gross distension. MS: No obvious swelling or deformities. Ambulates with bilaterally normal heel strike and toe off Neurological: Oriented to person, place, time and situation. Thought process intact. Psychiatric: Appropriate mood and affect. Good judgment and insight. Assessment & Plan Assessment & Plan (1) [facility] (current) use of opiate analgesic: Code(s): Z79.891 - rn long term care (current) use of opiate analgesic Category: Medical (2) Hidradenitis suppurativa: Code(s): L73.2 - Hidradenitis suppurativa Category: Medical (3) Opioid contract exists: Code(s): Z79.891 - rn long term care (current) use of opiate analgesic Category: Medical Plan Masspat was reviewed and without concerns. No obvious signs of diversion, abuse or misuse of the opioid medications. Will send in prescription for oxycodone 5 mg QID prn All questions and concerns have been answered and patient agrees with the plan. Follow up in 4 weeks, sooner if needed Medications: Refilled oxycodone Partial Fill upon patient request. 5 mg PO QID PRN 120 tabs 0RF pain 30 days L73.2 - Hidradenitis suppurativa, Z79.891 - rn long term care (current) use of opiate analgesic Coding Level of Care Code Est Pt Level 3 (84972) Complex EM visit Add On G2211 Diagnoses rn long term care (current) use of opiate analgesic Z79.891 Hidradenitis suppurativa L73.2 Opioid contract exists Z79.891
[2025-05-07 14:54] VITALS: BP 116/68; PULSE 71; RESP 16; O2SAT 97; BMI 28.8
== END 2025-05-07 15:47 | disposition home or self-care (01) ==
LOC: HO.PMC 14:48
PROVIDERS: PCP Hospitalist; Visit Provider Registered Nurse Emergency
DX: Z79.891 Long term (current) use of opiate analgesic (principal); L73.2 Hidradenitis suppurativa
CPT/HCPCS: 99213; G2211

== ENCOUNTER → 2025-05-07 14:48 | Outpatient (BNVA) | payer MEDICARE, MEDICAID, SELFPAY | PROVIDERS: PCP Hospitalist; Visit Provider Registered Nurse Emergency | DX: Z51.81 Encounter for therapeutic drug level monitoring (principal); L73.2 Hidradenitis suppurativa; Z79.891 Long term (current) use of opiate analgesic | CPT/HCPCS: 99212 ==

== ENCOUNTER 2025-06-04 15:08 | Outpatient (AMB) | payer MEDICARE, MEDICAID, SELFPAY ==
--- NOTE | 2025-06-04 15:33 | MHC.OFFVIS ---
Vital Signs 06/04/25 15:34 Height 5 ft 9 in Weight 165 lb BMI 24.4 BP 109/55 L Blood Pressure Location Lt brachial Position Sitting Respiration 16 Pulse 72 Pulse Source Pulse Oximeter Pulse Oximetry (%) 96 Oxygen Delivery Method Room Air Intake Visit Reasons: PILL COUNT Intake Note: Patient here for a routine pill count of Oxycodone. Per directions patient should have 52 pills. Patient presented 59 pills. Last took 11am. [employer] Consultant Required: No Accompanied by: Life Partner Allergies cephalexin Allergy (Unknown, Verified 06/04/25 15:33) Unknown penicillin G Allergy (Unknown, Verified 06/04/25 15:33) Unknown Doxycycline Hyclate Allergy (Unknown, Uncoded 02/26/25 15:31) vomiting HPI Comments Details: Wily presents back to the office today, accompanied by his significant other, for follow up chronic pain and chronic opioid therapy management. Patient is prescribed oxycodone 5 mg QID prn. Patient arrived today with the expectation of having 52 pills, he presented 59 pills which were counted in the presence of two staff members and returned to the patient in the original prescription bottle. This demonstrates responsible attitude toward patient's opioid medications. Pain is reported today as 8/10 and last dose of pain medication was taken this morning at 11am. Patient denies side effects including somnolence, constipation, itching, dyspnea, rash, dizziness or weakness. He utilizes THC that he obtains from dispensary. Received provided and scanned into the chart. [facility] Medical History Hidradenitis suppurativa correction (current) use of opiate analgesic Review of Systems Const All systems reviewed & are unremarkable except as noted in HPI and below Physical Exam Vital Signs: Last Vital Signs Pulse 72 06/04/25 15:34 Resp 16 06/04/25 15:34 BP 109/55 L 06/04/25 15:34 Pulse Ox 96 06/04/25 15:34 Oxygen Delivery Method Room Air 06/04/25 15:34 BMI result Body Mass Index 24.4 General: awake, alert, oriented. Answers questions appropriately. Fully engaged in examination. HEENT: Normocephalic. Hearing intact. Cardiac: External chest normal in appearance. Respiratory: No cough, audible wheezing or stridor. Abdomen: without gross distension. MS: No obvious swelling or deformities. Ambulates with bilaterally normal heel strike and toe off Neurological: Oriented to person, place, time and situation. Thought process intact. Psychiatric: Appropriate mood and affect. Good judgment and insight. Assessment & Plan Assessment & Plan (1) correction (current) use of opiate analgesic: Code(s): Z79.891 - correction (current) use of opiate analgesic Category: Medical (2) Hidradenitis suppurativa: Code(s): L73.2 - Hidradenitis suppurativa Category: Medical (3) Opioid contract exists: Code(s): Z79.891 - correction (current) use of opiate analgesic Category: Medical Plan Masspat was reviewed and without concerns. No obvious signs of diversion, abuse or misuse of the opioid medications. Will send in prescription for oxycodone 5 mg QID prn All questions and concerns have been answered and patient agrees with the plan. Follow up in 1 month, sooner if needed Medications: Refilled oxycodone Partial Fill upon patient request. 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
[2025-06-04 15:34] VITALS: BP 109/55; PULSE 72; RESP 16; O2SAT 96; BMI 24.4
--- OUTSIDE RECORDS SUMMARY | 2025-06-04 15:39 | XMS_ITS | Encounter Summary ---
Author Organization [facility] Address [address] [place] [address] Phone Care Team Providers Care Head Track Coach Name Role Phone Jose Mancia MD Primary Care Provider [phone] Encounter Details Date Type Department Care Team ([facility] st Contact Info) Description 07/24/2024 Procedure Pass [facility] Periop [address] [place] [address] Social History Tobacco Use Types Packs/Day Years Used Date Smoking Tobacco: Former Cigarettes 0.3 12 0 05/2011 - 05/2023 Education Answer Date Recorded Are you interested in more education? Not on mendoza e 03/10/2023 Are you concerned about learning? Not on file 03/10/2023 No 03/10/2023 No 03/10/2023 Food Answer Date Recorded Within the past 6 months we worried whether our food would run out before we got money to buy more. Never True 07/24/2024 Within the past 6 months the food we bought just didn't last and we didn't have enough money to get more. Never True Residential Stability Answer Date Recor ded What is your housing situation today? I have angel sing 07/24/2024 How many times have you move d in the past 12 months? Zero (I did not move) 07/24/2024 Paying for Meds Answer Date Recorded Do you have trouble paying for medicines? No 07/24/2024 Paying Utility Bills Answer Date Record ed Do you have trouble paying your heating or elect ricity bill? No 07/24/2024 Transportation Answer Date Recorded Has the lack of transportati on kept you from medical appointments or from getting medications? No 07/24/2024 Digital Access Answer Date Recorded No 07/24/2024 Yes 07/24/2024 Do you have reliable internet access at home? Ye s 07/24/2024 Do you have a device (e.g., phone, tablet, computer) with a working camera? Yes 07/24/2024 Sex and Gender Information Value Date Recorded Sex Assigned at Not on file Legal Sex Male 10:43 AM EST Gender Identity Not on file Sexual Orientation Not on file documented as of this encounter Functional Status * Calculated C-SSRS Risk Score (Lifetime/Recent) Answer Date of Assessment Author No Risk Indicated 07/24/2024 6:30 PM EDT Kayla Adkins, EMILY * [place] Suicide Severity Rating Scale (Screener/Recent Self-Report) Question Answer Date of Assessment Author 1. Wish to be (Past 1 Month) No 024 6:30 PM EDT Kayla Barreto, EMILY 2. Non-Specific Active Suici tanna Thoughts (Past 1 Month) No 07/24/2024 6:30 PM EDT Charleen Barreto RN 6. Suicidal Behavior (Lifetime) No 6:30 PM EDT Kayla Barreto, EMILY documented as of this encounter Plan of Treatment Upcoming Encounters Date Type Department Care Team (Late st Contact Info) Description 06/23/2025 10:00 AM EDT Infusion [facility] Infusion Center [address] [place] [id number] Autumn Appiah MD [address] [place] [id number] [email or web address] 07/21/2025 2:00 PM EDT Infusion [facility] Infusion Center [address] [place] [address] Autumn Appiah MD [address] [place] [phone] [email or web address] 09/25/2025 2:15 PM EST Office Visit [facility] [address] [place] [address] Autumn Appiah MD [address] [place] [address] [email or web address] documented as of this encounter Visit Diagnoses Not on filedocumented in this encounter Care Teams Head Track Coach Relationship Specialty Start Date End Date Jose Mancia MD [address] [facility] [place] [address] PCP - General Hospitalist 09/20/22 documented as of this encounter Additional Source Comments The information contained in this document represents components of the legal health record. It is not the complete legal health record.[facility]
== END 2025-06-04 15:54 | disposition home or self-care (01) ==
LOC: HO.PMC 15:09
PROVIDERS: PCP Hospitalist; Visit Provider Registered Nurse Emergency
DX: Z79.891 Long term (current) use of opiate analgesic (principal); L73.2 Hidradenitis suppurativa
CPT/HCPCS: 99213; G2211

== ENCOUNTER → 2025-06-04 15:08 | Outpatient (BNVA) | payer MEDICARE, MEDICAID, SELFPAY | PROVIDERS: PCP Hospitalist; Visit Provider Registered Nurse Emergency | DX: Z51.81 Encounter for therapeutic drug level monitoring (principal); L73.2 Hidradenitis suppurativa; Z79.891 Long term (current) use of opiate analgesic | CPT/HCPCS: 99212 ==

== ENCOUNTER 2025-07-18 14:53 | Outpatient (AMB) | payer MEDICARE, MEDICAID, SELFPAY ==
--- OUTSIDE RECORDS SUMMARY | 2025-07-18 14:57 | XMS_ITS | Encounter Summary ---
Author Organization [facility] Address [address] [place] [address] Phone Care Team Providers Care Field Manager Name Role Phone Jose Mancia MD Primary Care Provider [phone] Encounter Details Date Type Department Care Team (Late st Contact Info) Description 06/23/2025 Documentation [facility] at [address] [facility] [address] [place] [address] Denisa Dow, [facility] [address] [place] [phone] [email or web address] Social History Tobacco Use Types Packs/Day Years [...] computer) with a working camera? Yes 07/24/2024 Intimate Partner Violence Answer Date R ecorded Are you denied basic needs s uch as food, clothing, or medical care? No 06/23/2025 In the past 12 months have y ou been in a relationship with a person who hurts, threatens, or tries to control you? No 06/23/2025 Are you denied basic needs s uch as food, clothing, or medical care? No 06/23/2025 In the past 12 months have y ou been in a relationship with a person who hurts, threatens, or tries to control you? No 06/23/2025 Sex and Gender Information Value Date Recorded Sex Assigned at Not on file Legal Sex Male 10:43 AM EST Gender Identity Not on file Sexual Orientation Not on file documented as of this encounter Plan of Treatment Upcoming Encounters Date Type Department Care Team (Late st Contact Info) Description 07/21/2025 2:00 PM EDT Infusion [facility] Infusion Center [address] [place] [address] Autumn Appiah MD [address] [place] [phone] [email or web address] 08/19/2025 3:45 PM EDT Infusion [facility] Infusion Center [address] [place] [address] Autumn Appiah MD [address] [place] [phone] [email or web address] 09/25/2025 2:15 PM EST Office Visit [facility] [address] [facility] 1st [place] [address] Autumn Appiah MD [address] [place] [address] [email or web address] documented as of this encounter Visit Diagnoses Not on filedocumented in this encounter Care Teams Field Manager Relationship Specialty Start Date End Date Jose Mancia MD [address] [place] [phone] PCP - General Hospitalist 09/20/22 documented as of this encounter Additional Source Comments The information contained in this document represents components of the legal health record. It is not the complete legal health record.[facility]
--- OUTSIDE RECORDS SUMMARY | 2025-07-18 14:57 | XMS_ITS | Encounter Summary ---
Author Organization [facility] Address [address] [place] [address] Phone Care Team Providers Care Merchant Banker Name Role Phone Jose Mancia MD Primary Care Provider [phone] Encounter Details Date Type Department Care Team ([facility] st Contact Info) Description 07/24/2024 Procedure Pass [facility] Periop [address] [place] [address] Social History Tobacco Use Types Packs/Day Years [...] 6:30 PM EDT Kayla Adkins, EMILY * [place] Suicide Severity Rating Scale (Screener/Recent Self-Report) Question [...] Info) Description 07/21/2025 2:00 PM EDT Infusion [facility] Infusion Center [address] [place] [address] Autumn Appiah MD [address] [place] [phone] [email or web address] 08/19/2025 3:45 PM EDT Infusion [facility] Center [address] [place] [address] Autumn Appiah MD [address] [place] [phone] [email or web address] 09/25/2025 2:15 PM EST Office Visit [facility] [address] [place] [phone] Autumn Appiah MD [address] [place] [address] [email or web address] documented as of this encounter Visit Diagnoses Not on filedocumented in this encounter Care Teams Merchant Banker Relationship Specialty Start Date End Date Jose Mancia MD [address] [facility] [place] [address] PCP - General Hospitalist 09/20/22 documented as of this encounter Additional Source Comments The information contained in this document represents components of the legal health record. It is not the complete legal health record.[facility]
--- OUTSIDE RECORDS SUMMARY | 2025-07-18 14:57 | XMS_ITS | Encounter Summary ---
Author Organization [facility] Address [address] [place] [address] Phone Care Team Providers Care Bale Tie Machine Operator Name Role Phone Jose Mancia MD Primary Care Provider [phone] Encounter Details Date Type Department Care Team (Late Contact Info) Description 09/13/2023 Procedure Pass [facility] Periop [address] [place] [address] Social History Tobacco Use Types Packs/Day Years Used Date Smoking Tobacco: Former Cigarettes 0.3 12 0 05/2011 - 05/2023 Education Answer Date Recorded Are you interested in more education? Not on mendoza e 03/10/2023 Are you concerned about learning? Not on file 03/10/2023 No 03/10/2023 No 03/10/2023 Digital Access Answer Date Recorded No 04/11/2023 No 04/11/2023 Reliable internet access at home? Not on file 04/11/2023 Device with a working camera? Not on file Sex and Gender Information Value Date Recorded Sex Assigned at Not on file Legal Sex Male 10:43 AM EST Gender Identity Not on file Sexual Orientation Not on file documented as of this encounter Plan of Treatment Upcoming Encounters Date Type Department Care Team ([facility] Contact Info) Description 07/21/2025 2:00 PM EDT Infusion [facility] Infusion Center [address] [place] [address] Autumn Appiah MD [address] [place] [address] [email or web address] 08/19/2025 3:45 PM EDT Infusion [facility] Infusion Center [address] [place] [address] Autumn Appiah MD [address] [place] [address] [email or web address] 09/25/2025 2:15 PM EST Office Visit [facility] [address] [facility] [address] [place] [address] Autumn Appiah MD [address] [place] [address] [email or web address] documented as of this encounter Visit Diagnoses Not on filedocumented in this encounter Care Teams Bale Tie Machine Operator Relationship Specialty Start Date End Date Jose Mancia MD [address] [place] [address] [place] [address] PCP - General Hospitalist 09/20/22 documented as of this encounter Additional Source Comments The information contained in this document represents components of the legal health record. It is not the complete legal health record.[facility]
--- OUTSIDE RECORDS SUMMARY | 2025-07-18 14:57 | XMS_ITS | Clinical Summary ---
Author Organization [facility] Address [address] [place] [address] Phone Care Team Providers Care Mine Engineering Superintendent Name Role Phone Jose Mancia MD Primary Care Provider [phone] Allergies Active Allergy Reactions Criticality Noted Date Comments Doxycyclin-Eyelid Clnsr3,Emol1 Hives 07/27/2022 Prednisone Rash Low 12/13/2023 Pt. States jittery/restless Sulfa (Sulfonamide Antibiotics) Hives 07/27/2022 Medications acetaminophen (TYLENOL) 325 mg tablet Take 2 tablets (650 mg total) by mouth every 4 (four) hours as needed. 0 09/13/20 23 Active oxyCODONE 5 MG immediate release tablet Take 1-2 tablets (5-10 mg total) by mouth every 4 (four) hours as needed. Partial fill ok 16 tablet 09/13/20 23 Active betamethasone dipropionate 0.05 % ointment APPLY TO THE AFFECTED AREAS ON THE LEGS AND TRUNK TWICE DAILY FOR 2 WEEKS BREAK FOR 1 WEEK AND REPEAT NEEDED 135 g 5 04/10/20 24 Active mupirocin (BACTROBAN) 2 % ointmentIndicati ons:Hidradenitis suppurativa APPLY TO THE AFFECTED AREA ON THE THIGH TWICE DAILY FOR 14 DAYS (LARGER SURFACE AREA) 44 g 2 08/08/20 24 Active methocarbamoL (ROBAXIN) 500 MG tablet Take 500 mg by mouth 3 (three) times a day as needed. 10/11/20 24 Active bimekizumab-bkzx 160 mg/mL AtIn Inject 320 mg under the skin every 28 days. Maintenance: 320 mg once every 4 weeks. 4 mL 5 10/29/20 24 Active amoxicillin-clav ulanate (AUGMENTIN) 875-125 mg per tablet Take 1 tablet (875 mg of amoxicillin total) by mouth 2 (two) times a day. FOR FLARES ONLY: Take when flaring for 7 days. 60 tablet 03/25/20 25 Active predniSONE (DELTASONE) 10 MG tablet Take 20 mg daily for 7 days then 10 mg daily for 7 days 21 tablet 03/25/20 25 Active ketoconazole 2 % cream Apply topically daily. 60 g 11 06/23/20 25 Active ketoconazole 2 % cream Apply topically daily. 15 g 11 06/23/20 25 025 Discontin ued(Reord er) Active Problems Problem Noted Date Diagnosed Date Hidradenitis suppurativa 06/09/2022 Encounters Date Type Department Care Team Description 07/03/2025 Orders Only [facility] [address] [place] [address] Autumn Appiah MD 06/23/2025 10:00 AM EDT Infusion [facility] Infusion Center [address] [place] [address] Autumn Appiah MD Deseignora, Mary M, RN Hidradenitis suppurativa (Primary Dx) 06/23/2025 Documentation [facility] at [address] [place] [address] Denisa Dow CMA 06/23/2025 Refill [facility] [address] [place] [address] Nell Simons, professional development instructor Refill 05/15/2025 Telephone [facility] [address] [place] [address] Nell Simons, RN from Last 3 Months Immunizations Immunization Administration Dates Next Due INFLUENZA, SPLIT VIRUS, TRIVALENT PF 07/26/2024( Deferred: Patient Refused) Social History Tobacco Use Types Packs/Day Years [...] on file Sexual Orientation Not on file Last Filed Vital Signs Vital Sign Reading Time Taken Comments Blood Pressure 117/56 06/23/2025 12:45 PM EDT Pulse 63 06/23/2025 12:45 PM EDT Temperature 36.6 C (97.8 F) 06/23/2025 10:30 AM EDT Respiratory Rate 16 07/26/2024 9:07 AM EDT Oxygen Saturation 97% 06/23/2025 12:45 PM EDT Inhaled Oxygen Concentration - - Weight 93.3 kg (205 lb 9.6 oz) 03/28/2025 6:25 P M EDT Height 172.7 cm (5' 8 ) 07/24/2024 6:47 PM EDT Body Mass Index 31.26 07/24/2024 6:47 PM EDT Plan of Treatment Upcoming Encounters Date Type Department Care Team (Late st Contact Info) Description 07/21/2025 2:00 PM EDT Infusion [facility] Infusion Center [address] [place] [address] Autumn Appiah MD [address] [place] [address] [email or web address] 08/19/2025 3:45 PM EDT Infusion [facility] Infusion Center [address] [place] [address] Autumn Appiah MD [address] [place] [address] [email or web address] 09/25/2025 2:15 PM EST Office Visit [facility] [address] [place] [address] [address] [place] [address] Autumn Appiah MD [address] [place] [address] [email or web address] Health Maintenance Due Date Last Done Comments DEPRESSION SCREENING 2003 HIV ONE-TIME SCREENING (18-6 5 YEARS) 2009 PNEUMOCOCCAL VACCINES (0-49 years) (1 of 2 - PCV) 2010 Adult Td,Tdap Booster 11/07/2018 11/07/2008 COVID-19 VACCINE (3 - Pfizer risk series) 01/31/2022 01/03/2022, 12/09/2021 INFLUENZA VACCINE (#1) 2025 SMOKING Hx and SMOKELESS TOBACCO SCREENING 11/11/2025 11/11/2024 HEPATITIS C SCREENING Completed 05/12/2022 HEPATITIS A VACCINES Aged Out No long er eligible based on patient's age to complete this topic HIB VACCINES Aged Out No longer eligi ble based on patient's age to complete this topic MENINGOCOCCAL VACCINES (ACWY) Aged Out No longer eligible based on patient's age to complete this topic MENINGOCOCCAL VACCINES (B) Aged Out N o longer eligible based on patient's age to complete this topic Medical Devices Implanted Type Area Topology Teacher Device Identifier Shelf Expiration Date Model / Serial / Lot Rue Sl Picc Procedures Procedure Name Priority Date/Time Associated Diagnosis Comments C-REACTIVE PROTEIN Routine 06/23/2025 10 :00 AM EDT Hidradenitis suppurativa SEDIMENTATION RATE (ESR) Routine 06/23/2025 10:00 AM EDT Hidradenitis suppurativa HC BLOOD COUNT COMPLETE AUTO&AUTO DIFRNTL WBC Routine 06/23/2025 10:00 AM EDT Hidradenitis suppurativa COMPREHENSIVE METABOLIC PANEL Routine 06/23/2025 10:00 AM EDT Hidradenitis suppurativa HEPATITIS C ANTIBODY, QUALITATIVE Routine 05/12/2022 10:45 AM EDT Need for hepatitis C screening test from Last 3 Months or Most Recently Relevant to Health Maintenance Results * (ABNORMAL) Comprehensive metabolic panel (06/23/2025 10:00 AM EDT) SODIUM 137 136 - 145 mmol/L [facility] POTASSIUM 4.2 3.4 - 5.0 mmol/L [facility] Comment:HEMOLYSIS_INDEX_OF_2 9,INTERPRET_WITH_CAUTION CHLORIDE 102 98 - 107 mmol/L [facility] CO2 24 22 - 31 mmol/L [facility] BUN 9 6 - 23 mg/dL [facility] CREATININE 0.52 0.50 - 1.20 mg/dL [facility] GLUCOSE 138(H) 70 - 115 mg/dL [facility] ALBUMIN 3.7 3.5 - 5.2 g/dL [facility] TOTAL PROTEIN 7.8 6.0 - 8.0 g/dL [facility] CALCIUM 9.0 8.6 - 10.7 mg/dL [facility] ALKALINE PHOSPHATASE 107 40 - 130 U/L [facility] TOTAL BILIRUBIN 0.2 0.0 - 1.0 mg/dL [facility] AST 16 10 - 50 U/L [facility] ALT 9(L) 10 - 50 U/L [facility] GLOBULIN 4.1 2.2 - 4.2 g/dL [facility] EGFR >120 >60 mL/min/1.7 3m2 [facility] Comment:Estimated glomerular filtration rate calculated using the CKD-EPI refit equation. ANION GAP 11 3 - 15 mmol/L [facility] Blood 06/23/2025 10:0 0 AM EDT 06/23/2025 12:43 PM EDT us Autumn Appiah MD LAB BLOOD ORDERABLES Anastasiia gan Result [facility] [address] [place] [address] * (ABNORMAL) Sedimentation rate (ESR) (06/23/2025 10:00 AM EDT) ESR 95(H) 0 - 15 mm/h [facility] Blood 06/23/2025 10:0 0 AM EDT 06/23/2025 12:43 PM EDT us Autumn Appiah MD LAB BLOOD ORDERABLES Anastasiia malik Result [facility] [address] [place] [address] * (ABNORMAL) CBC and differential (06/23/2025 10:00 AM EDT) WBC 15.72(H) 4.00 - 11.00 K/uL [facility] RBC 3.67(L) 4.50 - 5.90 M/uL [facility] HGB 11.9(L) 13.5 - 17.5 g/dL [facility] HCT 36.4(L) 41.0 - 53.0 % [facility] PLT 422 150 - 450 K/uL [facility] MCV 99.2 80.0 - 100.0 fL [facility] MCH 32.4(H) 27.0 - 31.0 pg [facility] MCHC 32.7 32.0 - 36.0 g/dL [facility] RDW 13.2 11.5 - 14.5 % [facility] MPV 11.3 8.4 - 12.0 fL [facility] NRBC 0.00 0.00 /100 WBCs [facility] ABSOLUTE NRBC 0.00 0.00 K/uL [facility] DIFF METHOD Auto [facility] NEUTS 82.5(H) 48.0 - 76.0 % [facility] LYMPHS 11.1(L) 18.0 - 41.0 % [facility] MONOS 5.0 4.0 - 11.0 % [facility] EOS 0.5 0.0 - 5.0 % [facility] BASOS 0.4 0.0 - 1.5 % [facility] Granulocytes, immature (%) 0.5 0.0 - 0.9 % [facility] ABSOLUTE NEUTS 12.97(H) 1.92 - 7.60 K/uL [facility] ABSOLUTE LYMPHS 1.75 0.72 - 4.10 K/uL [facility] ABSOLUTE MONOS 0.78 0.16 - 1.10 K/uL [facility] ABSOLUTE EOS 0.08 0.00 - 0.50 K/uL [facility] ABSOLUTE BASOS 0.06 0.00 - 0.15 K/uL [facility] Granulocytes, immature 0.08 0.00 - 0.09 K/uL [facility] Blood 06/23/2025 10:0 0 AM EDT 06/23/2025 12:43 PM EDT us Autumn Appiah MD LAB BLOOD ORDERABLES Anastasiia l Result Performing Organization Address City/[facility] [address]/ZIP Co de Phone Number [address] [address] * (ABNORMAL) C-Reactive Protein (06/23/2025 10:00 AM EDT) C REACTIVE PROTEIN 62.3(H) 0.0 - 5.0 mg/L [facility] Blood 06/23/2025 10:0 0 AM EDT 06/23/2025 12:43 PM EDT us Autumn Appiah MD LAB BLOOD ORDERABLES Anastasiia l Result [address] [address] * Hepatitis C antibody, qualitative (05/12/2022 10:45 AM EDT) HCV ANTIBODY Negative Negative [facility] Comment:Antibodies to HCV no t detected. Does not exclude the possibility of exposure to HCV. 05/12/2022 10:4 5 AM EDT 05/12/2022 11:32 AM EDT us Valeriano Win MD LAB BLOOD ORDERABLES F inal Result [address] [address] from Last 3 Months or Most Recently Relevant to Health Maintenance Insurance MEDICARE PART A & B [facility] MEDICARE PART A & [place] [facility] [facility] [place] [facility] [place] [address] MEDICARE PART [place] [address] MEDICARE PART A [place] [address] MEDICARE [place] A [place] [address] MEDICARE [place] A [place] [address] [place] [id number] [place]IC[place] Advance Directives For more information, please contact: [phone] (9AM - 5PM [facility], Monday-Monday) * Full Code (Latest Code Status on File) Date Activated Date Inactivated Comments 07/24/2024 12:37 PM Question Answer Comments Code Status Confirmed With: Patient Care Teams Mine Engineering Superintendent Relationship Specialty Start Date End Date Jose Mancia MD [address] [facility] [place] [address] PCP - General Hospitalist 09/20/22 Additional Source Comments The information contained in this document represents components of the legal health record. It is not the complete legal health record.[facility]
[2025-07-18 14:59] VITALS: BP 129/70; PULSE 61; RESP 18; O2SAT 99
--- NOTE | 2025-07-18 14:59 | MHC.OFFVIS ---
Vital Signs 07/18/25 14:59 Weight 195 lb BP 129/70 Blood Pressure Location Lt brachial Position Sitting Respiration 18 Pulse 61 Pulse Source Pulse Oximeter Pulse Oximetry (%) 99 Oxygen Delivery Method Room Air Intake Visit Reasons: PILL COUNT Intake Note: pt states he last took his oxycodone at 1230p today 9.04.06. MassPAT says he should 0 pills and he rpesented to day with Allergies cephalexin Allergy (Unknown, Verified 07/18/25 14:59) Unknown penicillin G Allergy (Unknown, Verified 07/18/25 14:59) Unknown Doxycycline Hyclate Allergy (Unknown, Uncoded 02/26/25 15:31) vomiting HPI Comments Details: Wily presents back to the office today, accompanied by his significant other, for follow up chronic pain and chronic opioid therapy management. Patient is prescribed oxycodone 5 mg QID prn. Patient arrived today with the expectation of having 0 pills, he presented 4 pills which were counted in the presence of two staff members and returned to the patient in the original prescription bottle. This demonstrates responsible attitude toward patient's opioid medications. Pain is reported today as 6/10 and last dose of pain medication was taken today at 12:30pm. Patient denies side effects including somnolence, constipation, itching, dyspnea, rash, dizziness or weakness. THC he obtains from dispensary. 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 Answers questions appropriately. Fully engaged in examination. HEENT: Normocephalic. Hearing intact. Cardiac: External chest normal in appearance. Respiratory: No cough, audible wheezing or stridor. Abdomen: without gross distension. MS: No obvious swelling or deformities. Ambulates with bilaterally normal heel strike and toe off Neurological: Oriented to person, place, time and situation. Thought process intact. Psychiatric: Appropriate mood and affect. Good judgment and insight. 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 No obvious signs of diversion, abuse or misuse of the opioid medications. Will send in prescription for oxycodone 5 mg QID prn Tizanidine refilled today per patient request All questions and concerns have been answered and patient agrees with the plan. Follow up in 1 month, sooner if needed Medications: Refilled tizanidine 2 mg PO TID 270 tabs 1RF oxycodone Partial Fill upon patient request. 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
== END 2025-07-18 15:17 | disposition home or self-care (01) ==
LOC: HO.PMC 14:54
PROVIDERS: PCP Hospitalist; Visit Provider Registered Nurse Emergency
DX: Z79.891 Long term (current) use of opiate analgesic (principal); L73.2 Hidradenitis suppurativa
CPT/HCPCS: 99213; G2211

== ENCOUNTER → 2025-07-18 14:53 | Outpatient (BNVA) | payer MEDICARE, MEDICAID, SELFPAY | PROVIDERS: PCP Hospitalist; Visit Provider Registered Nurse Emergency | DX: Z51.81 Encounter for therapeutic drug level monitoring (principal); L73.2 Hidradenitis suppurativa; Z79.891 Long term (current) use of opiate analgesic | CPT/HCPCS: 99212 ==

== ENCOUNTER 2025-09-12 14:51 | Outpatient (AMB) | payer MEDICARE, MEDICAID, SELFPAY ==
--- NOTE | 2025-09-12 15:00 | MHC.OFFVIS ---
Vital Signs 09/12/25 15:13 Height 5 ft 9 in Weight 195 lb BMI 28.8 BP 121/74 Blood Pressure Location Lt brachial Position Sitting Pulse 69 Pulse Source Pulse Oximeter Pulse Oximetry (%) 97 Oxygen Delivery Method Room Air Intake Visit Reasons: Pill Count Intake Note: Wily comes in today for a pill count to oxycodone, patient should have 16 tablets and presents with 27 tablets which he last took today 09/12/25 at 12:30pm. Pain today 510 Cargo Mate Required: No Accompanied by: Spouse Allergies cephalexin Allergy (Unknown, Verified 09/12/25 15:12) Unknown penicillin G Allergy (Unknown, Verified 09/12/25 15:12) Unknown Doxycycline Hyclate Allergy (Unknown, Uncoded 02/26/25 15:31) vomiting HPI Comments Details: Wily presents back to the office today, accompanied by his significant other, for follow up chronic pain and chronic opioid therapy management. Patient is prescribed oxycodone 5 mg QID prn. Patient arrived today with the expectation of having 16 pills, he presented 27 pills which were counted in the presence of two staff members and returned to the patient in the original prescription bottle. This demonstrates responsible attitude toward patient's opioid medications. Pain is reported today as 5/10 and last dose of pain medication was taken today at 12:30pm. Patient denies side effects including somnolence, constipation, itching, dyspnea, rash, dizziness or weakness. THC he obtains from dispensary. [facility] Medical History Hidradenitis suppurativa nursing home (current) use of opiate analgesic Review of Systems Const All systems reviewed & are unremarkable except as noted in HPI and below Physical Exam Exam Exam: General: awake, alert, oriented. Answers questions appropriately. Fully engaged in examination. HEENT: Normocephalic. Hearing intact. Cardiac: External chest normal in appearance. Respiratory: No cough, audible wheezing or stridor. Abdomen: without gross distension. MS: No obvious swelling or deformities. Ambulates with bilaterally normal heel strike and toe off Neurological: Oriented to person, place, time and situation. Thought process intact. Psychiatric: Appropriate mood and affect. Good judgment and insight. 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 No obvious signs of diversion, abuse or misuse of the opioid medications. Will send in prescription for oxycodone 5 mg QID prn All questions and concerns have been answered and patient agrees with the plan. Follow up in 1 month, sooner if needed Medications: Refilled oxycodone Partial Fill upon patient request. 5 mg PO QID PRN 120 tabs 0RF pain 30 days L73.2 - Hidradenitis suppurativa, Z79.891 - parts counterman (current) use of opiate analgesic Coding Level of Care Code Est Pt Level 3 (79577) Complex EM visit Add On G2211 Diagnoses nursing home (current) use of opiate analgesic Z79.891 Hidradenitis suppurativa L73.2 Opioid contract exists Z79.891
[2025-09-12 15:13] VITALS: BP 121/74; PULSE 69; O2SAT 97; BMI 28.8
--- OUTSIDE RECORDS SUMMARY | 2025-09-12 15:14 | XMS_ITS | Encounter Summary ---
Author Organization [facility] Address [address] [place] [address] Phone Care Team Providers Care Factory Worker Name Role Phone Jose Mancia MD Primary Care Provider Encounter Details Date Type Department Care Team ([facility] st Contact Info) Description 07/24/[address] [facility] Periop [address] [place] [address] Social History Tobacco Use Types Packs/Day Years [...] Risk Indicated 07/24/2024 6:30 PM EDT Kayla Adkins RN * [place] Suicide Severity Rating Scale (Screener/Recent Self-Report) Question [...] Care Team (Late st Contact Info) Description 09/15/2025 4:15 PM EST Infusion [facility] Infusion Center [address] [place] [address] Autumn Appiah MD [address] [place] [address] [email or web address] 09/25/2025 2:15 PM EST Office Visit [facility] [address] [place] [address] [address] [place] [address] Autumn Appiah MD [address] [place] [address] [email or web address] 10/17/2025 1:00 PM EST Infusion [facility] Infusion Center [address] [place] [address] Autumn Appiah MD [address] [place] [address] [email or web address] documented as of this encounter Visit Diagnoses Not on filedocumented in this encounter Care Teams Factory Worker Relationship Specialty Start Date End Date Jose Mancia MD [facility] [place] [address] PCP - General Hospitalist 09/20/22 documented as of this encounter Additional Source Comments The information contained in this document represents components of the legal health record. It is not the complete legal health record.[facility]
--- OUTSIDE RECORDS SUMMARY | 2025-09-12 15:14 | XMS_ITS | Encounter Summary ---
Author Organization [facility] Address [address] [place] [address] Phone Care Team Providers Care Impregnator Electrolytic Capacitors Name Role Phone Jose Mancia MD Primary Care Provider [phone] Encounter Details Date Type Department Care Team (Late st Contact Info) Description 06/23/2025 Documentation [facility] at [address] [facility] [address] [place] [address] Denisa Dow, [facility] [address] [place] [phone] [email or web address] Social History Tobacco Use Types Packs/Day [...] Info) Description 09/15/2025 4:15 PM EST Infusion [facility] Infusion Center [facility] [place] [address] Autumn Appiah MD [address] [place] [address] [email or web address] 09/25/2025 2:15 PM EST Office Visit [facility] [address] [place] [address] [address] [place] [address] Autumn Appiah MD [address] [place] [address] [email or web address] 10/17/2025 1:00 PM EST Infusion [facility] Infusion Center [address] [place] [address] Autumn Appiah MD [address] [place] [address] [email or web address] documented as of this encounter Visit Diagnoses Not on filedocumented in this encounter Care Teams Impregnator Electrolytic Capacitors Relationship Specialty Start Date End Date Jose Mancia MD [address] [facility] [place] [address] PCP - General Hospitalist 09/20/22 documented as of this encounter Additional Source Comments The information contained in this document represents components of the legal health record. It is not the complete legal health record.[facility]
--- OUTSIDE RECORDS SUMMARY | 2025-09-12 15:14 | XMS_ITS | Encounter Summary ---
Author Organization [facility] Address [address] [place] [address] Phone Care Team Providers Care Segmental Wall Installer Name Role Phone Jose Mancia MD Primary Care Provider [phone] Encounter Details Date Type Department Care Team (Late Contact Info) Description 09/13/2023 Procedure Pass [facility]iop [address] [place] [address] Social History Tobacco Use Types Packs/Day Years [...] Encounters Date Type Department Care Team (Late Contact Info) Description 09/15/2025 4:15 PM EST Infusion [facility] Infusion Center [address] [place] [address] Autumn Appiah MD [address] [place] [address] [email or web address] 09/25/2025 2:15 PM EST Office Visit [facility] [address] [facility] [address] [place] [address] Autumn Appiah MD [address] [place] [address] [email or web address] 10/17/2025 1:00 PM EST Infusion [facility] Infusion Center [address] [place] [address] Autumn Appiah MD [address] [place] [address] [email or web address] documented as of this encounter Visit Diagnoses Not on filedocumented in this encounter Care Teams Segmental Wall Installer Relationship Specialty Start Date End Date Jose Mancia MD [address] [place] [address] [place] [address] PCP - General Hospitalist 09/20/22 documented as of this encounter Additional Source Comments The information contained in this document represents components of the legal health record. It is not the complete legal health record.[facility]
--- OUTSIDE RECORDS SUMMARY | 2025-09-12 15:14 | XMS_ITS | Clinical Summary ---
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 States jittery/restless Sulfa (Sulfonamide Antibiotics) Hives 07/27/2022 Medications acetaminophen (TYLENOL) 325 mg tablet Take 2 tablets (650 mg total) by mouth every 4 (four) hours as needed. 0 3 Active oxyCODONE 5 MG immediate release tablet Take 1-2 tablets (5-10 mg total) by mouth every 4 (four) hours as needed. Partial fill ok 16 tablet 3 Active betamethasone dipropionate 0.05 % ointment APPLY TO THE AFFECTED AREAS ON THE LEGS AND TRUNK TWICE DAILY FOR 2 WEEKS BREAK FOR 1 WEEK AND REPEAT NEEDED 135 g 5 4 Active mupirocin (BACTROBAN) 2 % ointmentIndicati ons:Hidradenitis suppurativa APPLY TO THE AFFECTED AREA ON THE THIGH TWICE DAILY FOR 14 DAYS (LARGER SURFACE AREA) 44 g 2 4 Active methocarbamoL (ROBAXIN) 500 MG tablet Take 500 mg by mouth 3 (three) times a day as needed. 4 Active bimekizumab-bkzx 160 mg/mL AtIn Inject 320 mg under the skin every 28 days. Maintenance: 320 mg once every 4 weeks. 4 mL 5 4 Active amoxicillin-clav ulanate (AUGMENTIN) 875-125 mg per tablet Take 1 tablet (875 mg of amoxicillin total) by mouth 2 (two) times a day. FOR FLARES ONLY: Take when flaring for 7 days. 60 tablet 5 Active predniSONE (DELTASONE) 10 MG tablet Take 20 mg daily for 7 days then 10 mg daily for 7 days 21 tablet 5 Active ketoconazole 2 % cream Apply topically daily. 60 g 11 5 Active Active Problems Problem Noted Date Diagnosed Date Hidradenitis suppurativa 06/09/2022 Encounters Date Type Department Care Team Description 08/19/2025 3:45 PM EDT Infusion [facility] Infusion Center [address] [place] [address] Autumn Appiah MD Aranas-Obsequio, Theresa, RN Hidradenitis suppurativa (Primary Dx) 07/21/2025 2:00 PM EDT Infusion [facility] Infusion Center [address] [place] [address] Autumn Appiah MD Taccini, Sara, RN Hidradenitis suppurativa (Primary Dx) 07/03/2025 Orders Only [facility] [address] [place] [address] Autumn Appiah MD 06/23/2025 10:00 AM EDT Infusion [facility] Infusion [address] [address] Autumn Appiah MD Deseignora, Mary M, RN Hidradenitis suppurativa (Primary Dx) 06/23/2025 Documentation [facility] at [address] [place] [address] Denisa Dow CMA 06/23/2025 Refill [facility] [address] [place] [address] Nell Simons, crowd controller Refill from Last 3 Months Immunizations Immunization Administration [...] uch as food, clothing, or medical care? Deferred 08/19/2025 In the past 12 months have y ou been in a relationship with a person who hurts, threatens, or tries to control you? Deferred 08/19/2025 Are you denied basic needs s uch as food, clothing, or medical care? Deferred 08/19/2025 In the past 12 months have y ou been in a relationship with a person who hurts, threatens, or tries to control you? Deferred 08/19/2025 Sex and Gender Information Value Date Recorded Sex Assigned at Not on file Legal Sex Male 10:43 AM EST Gender Identity Not on file Sexual Orientation Not on file Last Filed Vital Signs Vital Sign Reading Time Taken Comments Blood Pressure 99/60 08/19/2025 3:01 PM EDT Pulse 68 08/19/2025 3:01 PM EDT Temperature 36.1 C (97 F) 08/19/2025 2:59 PM EDT Respiratory Rate 18 08/19/2025 2:59 PM EDT Oxygen Saturation 96% 08/19/2025 3:01 PM EDT Inhaled Oxygen Concentration - - Weight 93.3 kg (205 lb 9.6 oz) 03/28/2025 6:25 P M EDT Height 172.7 cm (5' 8 ) 07/24/2024 6:47 PM EDT Body Mass Index 31.26 07/24/2024 6:47 PM EDT Plan of Treatment Upcoming Encounters Date Type Department Care Team (Late st Contact Info) Description 09/15/2025 4:15 PM EST Infusion [facility] Infusion Center [address] [place] [address] Autumn Appiah MD [address] [place] [address] [email or web address] 09/25/2025 2:15 PM EST Office Visit [facility] [address] [place] [address] Autumn Appiah MD [address] [place] [address] [email or web address] 10/17/2025 1:00 PM EST Infusion [facility] Infusion Center [address] [place] [address] Autumn Appiah MD [address] [place] [address] [email or web address] Health Maintenance Due Date Last Done Comments DEPRESSION SCREENING 2003 HIV ONE-TIME SCREENING (18-6 5 YEARS) 2009 Adult Td,Tdap Booster 11/07/2018 11/07/2008 INFLUENZA VACCINE (#1) 2025 COVID-19 VACCINE (2024-2 6 season) 2025 01/03/2022, 12/09/2021 SMOKING Hx and SMOKELESS TOBACCO SCREENING 11/11/2025 [...] on patient's age to complete this topic PNEUMOCOCCAL VACCINES (0-49 years) Aged Out No longer eligible b ased on patient's age to complete this topic Medical Devices Implanted Type Area Rn Critical Care Device Identifier Shelf Expiration Date Model / Serial / Lot Rue Sl Picc Procedures Procedure Name Priority Date/Time Associated Diagnosis Comments C-REACTIVE PROTEIN Routine 08/19/2025 2: 33 PM EDT Hidradenitis suppurativa SEDIMENTATION RATE (ESR) Routine 08/19/2025 2:33 PM EDT Hidradenitis suppurativa HC BLOOD COUNT COMPLETE AUTO&AUTO DIFRNTL WBC Routine 08/19/2025 2:33 PM EDT Hidradenitis suppurativa COMPREHENSIVE METABOLIC PANEL Routine 08/19/2025 2:33 PM EDT Hidradenitis suppurativa C-REACTIVE PROTEIN Routine 06/23/2025 10 :00 AM [...] Maintenance Results * (ABNORMAL) Comprehensive metabolic panel (08/19/2025 2:33 PM EDT) Only the most recent of2 resultswithin the time period is included. SODIUM 137 136 - 145 mmol/L [facility] POTASSIUM 4.8 3.4 - 5.0 mmol/L [facility] Comment:HEMOLYSIS_INDEX_OF_1 56,INTERPRET_WITH_CAUTION CHLORIDE 102 98 - 107 mmol/L [facility] CO2 21(L) 22 - 31 mmol/L [facility] BUN 11 6 - 23 mg/dL [facility] CREATININE 0.70 0.50 - 1.20 mg/dL [facility] GLUCOSE 118(H) 70 - 115 mg/dL [facility] ALBUMIN 4.0 3.5 - 5.2 g/dL [facility] TOTAL PROTEIN 8.7(H) 6.0 - 8.0 g/dL [facility] CALCIUM 9.2 8.6 - 10.7 mg/dL [facility] ALKALINE PHOSPHATASE 120 40 - 130 U/L [facility] TOTAL BILIRUBIN 0.3 0.0 - 1.0 mg/dL [facility] AST 33 10 - 50 U/L [facility] ALT 17 10 - 50 U/L [facility] GLOBULIN 4.7(H) 2.2 - 4.2 g/dL [facility] EGFR >120 >60 mL/min/1.7 3m2 [facility] Comment:Estimated glomerular filtration rate calculated using the CKD-EPI refit equation. ANION GAP 14 3 - 15 mmol/L [facility] Blood 08/19/2025 2:33 PM EDT 08/19/2025 3:04 PM EDT Autumn Appiah MD LAB BLOOD ORDERABLES Anastasiia l Result Performing Organization Address [facility] [place] [address] * (ABNORMAL) Sedimentation rate (ESR) (08/19/2025 2:33 PM EDT) Only the most recent of2 resultswithin the time period is included. ESR 44(H) 0 - 15 mm/h [facility] Blood 08/19/2025 2:33 PM EDT 08/19/2025 3:04 PM EDT Autumn Appiah MD LAB BLOOD ORDERABLES Anastasiia l Result Performing Organization Address [facility] [place] [address] * (ABNORMAL) CBC and differential (08/19/2025 2:33 PM EDT) Only the most recent of2 resultswithin the time period is included. WBC 13.47(H) 4.00 - 11.00 K/uL [facility] RBC 4.51 4.50 - 5.90 M/uL [facility] HGB 14.7 13.5 - 17.5 g/dL [facility] HCT 45.4 41.0 - 53.0 % [facility] PLT 337 150 - 450 K/uL [facility] MCV 100.7(H) 80.0 - 100.0 fL [facility] MCH 32.6(H) 27.0 - 31.0 pg [facility] MCHC 32.4 32.0 - 36.0 g/dL [facility] RDW 13.6 11.5 - 14.5 % [facility] MPV 11.3 8.4 - 12.0 fL [facility] NRBC 0.00 0.00 /100 WBCs [facility] ABSOLUTE NRBC 0.00 0.00 K/uL [facility] DIFF METHOD Auto [facility] NEUTS 57.9 48.0 - 76.0 % [facility] LYMPHS 32.4 18.0 - 41.0 % [facility] MONOS 4.5 4.0 - 11.0 % [facility] EOS 3.9 0.0 - 5.0 % [facility] BASOS 0.9 0.0 - 1.5 % [facility] Granulocytes, immature (%) 0.4 0.0 - 0.9 % [facility] ABSOLUTE NEUTS 7.80(H) 1.92 - 7.60 K/uL [facility] ABSOLUTE LYMPHS 4.36(H) 0.72 - 4.10 K/uL [facility] ABSOLUTE MONOS 0.61 0.16 - 1.10 K/uL [facility] ABSOLUTE EOS 0.53(H) 0.00 - 0.50 K/uL [facility] ABSOLUTE BASOS 0.12 0.00 - 0.15 K/uL [facility] Granulocytes, immature 0.05 0.00 - 0.09 K/uL [facility] Blood 08/19/2025 2:33 PM EDT 08/19/2025 3:04 PM EDT us Autumn Appiah MD LAB BLOOD ORDERABLES Anastasiia l Result Performing Organization Address [facility] Co de Phone Number [address] [address] * (ABNORMAL) C-Reactive Protein (08/19/2025 2:33 PM EDT) Only the most recent of2 resultswithin the time period is included. Pathologist [facility] C REACTIVE PROTEIN 25.7(H) 0.0 - 5.0 mg/L [facility] Blood 08/19/2025 2:33 PM EDT 08/19/2025 3:04 PM EDT Autumn Appiah MD LAB BLOOD ORDERABLES Anastasiia l Result Performing Organization Address [facility] Co de Phone Number [address] [address] * Hepatitis C antibody, qualitative (05/12/2022 10:45 AM EDT) Pathologist [facility] HCV ANTIBODY Negative Negative [facility] Comment:Antibodies to HCV no t detected. Does not exclude the possibility of exposure to HCV. 05/12/2022 10:4 5 AM EDT 05/12/2022 11:32 AM EDT us Valeriano Win MD LAB BLOOD ORDERABLES F inal Result Performing Organization Address City/[facility]/ZIP Co de Phone Number [facility] [address] [place] [address] from Last 3 Months or Most Recently Relevant to Health Maintenance Insurance [address] [place] [address] MEDICARE PART A & [place] MED[place] & [place] HEALTH MEDICARE [place] & B Member Subscriber Plan / Payer ( fective 2012-Present) Name:Wily Leon Member ID:[id number] Relation to Subscriber:Self Name:Wily Leon Subscriber ID:[id number] Payer ID:[id number] Group ID:Not on file Type:Medicare Address: [facility] [employer] [facility] [employer] [facility] [address] [place] [phone] [facility] & [place] PART A & B [facility] [place] [address] [place] [id number] MEDICARE PART A & B [facility] Advance Directives For more information, please contact: [phone] (9AM - 5PM [facility], Monday-Monday) * Full Code (Latest Code Status on File) Date Activated Date Inactivated Comments 07/24/2024 12:37 PM Question Answer Comments Code Status Confirmed With: Patient Care Teams Sed 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 It is not the complete legal health record.[facility]
== END 2025-09-12 15:09 | disposition home or self-care (01) ==
LOC: HO.PMC 14:52
PROVIDERS: Visit Provider Registered Nurse Emergency
DX: Z79.891 Long term (current) use of opiate analgesic (principal); L73.2 Hidradenitis suppurativa
CPT/HCPCS: 99213; G2211

== ENCOUNTER → 2025-09-12 14:51 | Outpatient (BNVA) | payer MEDICARE, MEDICAID, SELFPAY | PROVIDERS: Visit Provider Registered Nurse Emergency | DX: L73.2 Hidradenitis suppurativa (principal); Z79.891 Long term (current) use of opiate analgesic | CPT/HCPCS: 99212 ==